=== PATIENT | female | born 1960 | race Caucasian/White ===

== ENCOUNTER 2019-11-26 09:25 | Emergency (ER) | payer MEDICAID ==
--- NOTE | 2019-11-26 09:27 | ERPHSYRPT ---
- History of Present Illness Time Seen by Provider: 11/26/19 09:27 Source: patient Exam Limitations: no limitations Physician History: This is a morbidly obese 59-year-old female who has had stable asthma over several years. She uses albuterol inhaler and nebulizers as needed. In the last 4 weeks the patient's symptoms have worsened. She has been seen in the respiratory clinic on 2 occasions and has called in on a telemedicine [facility] twice during this 4-week. In the last 3 days her symptoms of wheezing and coughing have worsened. She has been placed on steroids which seemed to help her symptoms significantly. However, when the steroid has tapered down to a low level or when she has been out of her prednisone that she has been placed on, her symptoms recur. To her recollection she is never had a fever. She has felt short of breath, although, her oxygen saturations have been normal. Her last chest x-ray was November 08, 2019. This did not show acute findings. Patient was sent here today from the respiratory clinic for further evaluation and management. Patient had the COVID-19 testing done at the respiratory care clinic prior to her arrival here this morning. Patient denies chest pain. Patient denies abdominal pain. Patient denies nausea vomiting diarrhea. No other individuals around her have similar symptoms. Most recent antibiotic that she completed was a Z-Ken Timing/Duration: day(s) (3), worse Activities at Onset: none Severity of Dyspnea-Max: moderate Severity of Dyspnea-Current: moderate Possible Cause: frequent episodes (Recently) Modifying Factors: Improves With: albuterol nebulizer, coughing, other (Steroid therapy seems to help.) Associated Symptoms: cough, wheezing International travel in last 2 weeks: No Allergies/Adverse Reactions: diphenhydramine [From Benadryl] Allergy (Verified 11/26/19 09:48) Home Medications: Ipratropium/Albuterol Sulfate [Iprat-Albut 0.5-3(2.5) mg/3 ml] 3 ml IH UD [History] Hx Tetanus, Diphtheria Vaccination/Date Given: No Hx Influenza Vaccination/Date Given: No Hx Pneumococcal Vaccination/Date Given: No Travel Risk - International Travel Have you traveled outside of the country in past 3 weeks: No Have you or anyone close to you been diagnosed with or: No Do your reside in a community with a known COVID-19 case?: Yes If Yes where:: [facility] - Coronavirus Screening Has patient experienced Coronavirus symptoms: Yes Symptoms experienced: respiratory symptoms (i.e.Cought,shortness of breath) - Review of Systems Constitutional: No Symptoms Eyes: No Symptoms Ears, Nose, & Throat: No Symptoms Respiratory: Cough, Dyspnea, Wheezing Cardiac: No Symptoms Abdominal/Gastrointestinal: No Symptoms Genitourinary Symptoms: No Symptoms Musculoskeletal: No Symptoms Skin: No Symptoms Neurological: No Symptoms Psychological: No Symptoms Endocrine: No Symptoms Hematologic/Lymphatic: No Symptoms Immunological/Allergic: No Symptoms All Other Systems: Reviewed and Negative - Past Medical History Pertinent Past Medical History: Yes Neurological History: No Pertinent History ENT History: No Pertinent History Cardiac History: No Pertinent History Respiratory History: Asthma Endocrine Medical History: No Pertinent History Musculoskeletal History: No Pertinent History GI Medical History: No Pertinent History History: No Pertinent History Psycho-Social History: No Pertinent History Female Reproductive Disorders: No Pertinent History Other Medical History: BACK PAIN YRS AGO - Past Surgical History Past Surgical History: Yes Neuro Surgical History: No Pertinent History Cardiac: No Pertinent History Respiratory: No Pertinent History Gastrointestinal: No Pertinent History Genitourinary: No Pertinent History Musculoskeletal: No Pertinent History Female Surgical History: Hysterectomy, Tubal Ligation - Social History Smoking Status: Never smoker Exposure to second hand smoke: No Drug Use: none Patient Lives Alone: No - Nursing Vital Signs Nursing Vital Signs: Initial Vital Signs Temperature 97.6 F 11/26/19 09:33 Pulse Rate 97 H 11/26/19 09:33 Blood Pressure 189/94 11/26/19 09:33 O2 Sat by Pulse Oximetry 98 11/26/19 09:33 Pain Scale Pain Intensity 0 - Physical Exam General Appearance: moderate distress, alert, anxiety, obese Eye Exam: PERRL/EOMI, eyes nml inspection Ears, Nose, Throat Exam: hearing grossly normal Neck Exam: normal inspection, non-tender, supple, full range of motion Respiratory Exam: airway intact, wheezing, No chest tenderness, No accessory muscle use, No crackles/rales, No rhonchi, No stridor Cardiovascular/Chest Exam: normal heart sounds, regular rate/rhythm Abdominal/Gastrointestinal Exam: soft, normal bowel sounds, No tenderness Rectal Exam: not done Extremity Exam: non-tender, normal range of motion, normal inspection Neurologic Exam: alert, oriented x 3, cooperative, diathermy equipment repairer II-XII nml as tested, normal mood/affect, nml cerebellar function, nml station & gait Skin Exam: normal color, warm, dry Lymphatic Exam: No adenopathy SpO2 Interpretation: normal O2 Delivery: Room Air - Course Nursing assessment & vital signs reviewed: Yes EKG Interpreted by Me: RATE (95), Sinus Rhythm, NORMAL AXIS, NORMAL INTERVALS, NORMAL QRS, Other (No comparison EKG. No acute ischemic changes) Ordered Tests: Active Orders 24 hr Category Date Time Status Mooner STAT Care 11/26/19 09:47 Active EKG-ER Only STAT Care 11/26/19 09:46 Active IV Insertion STAT Care 11/26/19 09:46 Active Isolation, Initiate & Maintain Q4H Care 11/26/19 09:47 Active Pulse Oximetry (ED) STAT Care 11/26/19 09:46 Active CHEST 1 VIEW (PORTABLE) Stat Exams 11/26/19 09:46 Taken BLOOD CULTURE Stat Lab 11/26/19 09:46 Received BMP Stat Lab 11/26/19 11:23 Ordered CBC W DIFF Stat Lab 11/26/19 09:40 Completed D-DIMER QUANTITATIVE Stat Lab 11/26/19 09:40 Completed NT PRO BNP Stat Lab 11/26/19 09:40 Completed PROTIME WITH INR Stat Lab 11/26/19 09:40 Completed TROPONIN Q3H Lab 11/26/19 10:00 Completed TROPONIN Q3H Lab 11/26/19 13:00 Ordered TROPONIN Q3H Lab 11/26/19 16:00 Ordered TROPONIN Q3H Lab 11/26/19 19:00 Ordered TROPONIN Q3H Lab 11/26/19 22:00 Ordered Respiratory Therapy Assessment DAILY RT 11/26/19 10:08 Active Medication Summary Generic Name Dose Route Start Last Admin Trade Name Freq PRN Reason Stop Dose Admin Ceftriaxone Sodium/Dextrose 1 g in 50 mls @ 100 mls/hr 11/26/19 11:22 Rocephin 1 Gm-D5w 50 Ml Bag IV 11/26/19 11:51 STAT STA Discontinued Medications Generic Name Dose Route Start Last Admin Trade Name Freq PRN Reason Stop Dose Admin Hydrocodone Bitart/Acetaminophen 10 ml 11/26/19 09:48 11/26/19 09:53 Hydrocodone-Acetamin 2.5-108/5 Ml Solution PO 11/26/19 09:49 10 ml STAT STA Administration Hydrocodone Bitart/Acetaminophen Confirm 11/26/19 09:51 Hydrocodone-Acetamin 2.5-108/5 Ml Solution Administered 11/26/19 09:52 Dose 10 ml .ROUTE .STK-MED ONE Albuterol/Ipratropium Confirm 11/26/19 09:41 Duoneb 0.5-3 Mg/3 Ml Neb Administered 11/26/19 09:42 Dose 3 ml IH .STK-MED ONE Albuterol/Ipratropium 3 ml 11/26/19 09:46 11/26/19 10:09 Duoneb 0.5-3 Mg/3 Ml Neb IH 11/26/19 09:47 3 ml STAT ONE Administration Levofloxacin 500 mg 11/26/19 11:22 Levofloxacin 500 Mg Tablet PO 11/26/19 11:23 STAT ONE Methylprednisolone Sodium Succinate 125 mg 11/26/19 09:46 11/26/19 09:53 Solu-Medrol 125 Mg IV 11/26/19 09:47 125 mg STAT ONE Administration Methylprednisolone Sodium Succinate Confirm 11/26/19 09:51 Solu-Medrol 125 Mg Administered 11/26/19 09:52 Dose 125 mg .ROUTE .STK-MED ONE Lab/Rad Data: Laboratory Result Diagrams 11/26/19 09:40 Laboratory Results 11/26/19 11/26/19 11/26/19 Range/Units 10:00 09:40 09:40 WBC (4.0-10.5) K/mm3 RBC (4.1-5.4) M/mm3 Hgb (12.0-16.0) gm/dl Hct (35-47) % MCV (78-100) fl MCH (26-32) pg MCHC (32-36) g/dl RDW (11.5-14.0) % Plt Count (150-450) K/mm3 MPV (7.5-11.0) fl Gran % (36.0-66.0) % Eos # (Auto) (0-0.5) Absolute Lymphs (auto) (1.0-4.6) Absolute Monos (auto) (0.0-1.3) Lymphocytes % (24.0-44.0) % Monocytes % (0.0-12.0) % Eosinophils % (0.00-5.0) % Basophils % (0.0-0.4) % Absolute Granulocytes (1.4-6.9) Basophils # (0-0.4) PT 11.9 (9.95-12.35) SECONDS INR 1.05 (0.8-3.0) D-Dimer 458 (215-500) ng/mL Troponin I < 0.012 (0.000-0.034) ng/mL NT-Pro-B Natriuret Pep 85.2 (0-900) pg/mL 11/26/19 Range/Units 09:40 WBC 7.9 (4.0-10.5) K/mm3 RBC 5.29 (4.1-5.4) M/mm3 Hgb 14.8 (12.0-16.0) gm/dl Hct 46.6 (35-47) % MCV 88.1 (78-100) fl MCH 28.0 (26-32) pg MCHC 31.8 L (32-36) g/dl RDW 14.4 H (11.5-14.0) % Plt Count 264 (150-450) K/mm3 MPV 10.3 (7.5-11.0) fl Gran % 63.9 (36.0-66.0) % Eos # (Auto) 0.45 (0-0.5) Absolute Lymphs (auto) 1.82 (1.0-4.6) Absolute Monos (auto) 0.52 (0.0-1.3) Lymphocytes % 23.0 L (24.0-44.0) % Monocytes % 6.6 (0.0-12.0) % Eosinophils % 5.7 H (0.00-5.0) % Basophils % 0.8 (0.0-0.4) % Absolute Granulocytes 5.06 (1.4-6.9) Basophils # 0.06 (0-0.4) PT (9.95-12.35) SECONDS INR (0.8-3.0) D-Dimer (215-500) ng/mL Troponin I (0.000-0.034) ng/mL NT-Pro-B Natriuret Pep (0-900) pg/mL - Progress Progress: improved, re-examined Air Movement: good Progress Note: 11/26/19 11:29 Chest x-ray reveals no acute process. There is no change from prior chest x- ray dated November 08, 2019 Medical decision making: This patient has had coughing and wheezing that is been intermittent over the last 4 weeks. In the last few days her symptoms have worsened. Her symptoms improve on steroids. She is currently off of steroid treatment. She has had antibiotics recently of a Z-Ken. Patient is afebrile, her room air oxygenation is running 97 to 99%. Her chest x-ray does not show any acute findings. Her troponin, d-dimer, and BNP levels are all normal. Patient symptom has improved with DuoNeb nebulizer treatment, intravenous steroids and hydrocodone cough syrup. Her respiratory panel is negative. And her COVID-19 lab test is pending. Patient is to be discharged to home and quarantine herself as she has been doing. We will change her antibiotic therapy, continue steroid dosing, and provide antitussive agent for her. She is to follow-up with her primary care physician for her COVID-19 lab test results. Blood Culture(s) Obtained: Yes Antibiotics given: Yes Counseled pt/family regarding: lab results, diagnosis, need for follow-up, rad results - Departure Departure Disposition: Home Clinical Impression: Bronchitis Condition: Stable Critical Care Time: No Referrals: NOE WHITFIELD MD [Primary Care Provider] - Additional Instructions: Drink plenty of fluids. Take your prescription medication as prescribed. Follow-up with your primary care physician for further management. Return to the emergency department if your symptoms worsen. Prescriptions: Hydrocodone Bit/Acetaminophen [Hydrocodone-Acetaminophen Soln] 10 ml PO Q6H # 120 ml Levofloxacin [Levaquin 500 MG Tablet] 500 mg PO DAILY #7 tablet Methylprednisolone Packet [Medrol Dosepack] 4 mg PO UD #1 packet
[2019-11-26] MEDS ORDERED: DUONEB 0.5-3 MG/3 ml Neb IH ONE ×4 (09:41→11:47)
[2019-11-26] MEDS ORDERED: solu-MEDROL 125 MG IV ONE (09:46)
[2019-11-26 09:48] VITALS: BP 189/94
[2019-11-26] MEDS ORDERED: HYDROCODONE-ACETAMIN 2.5-108/5 ML SOLUTION PO STA (09:48)
[2019-11-26] MEDS ORDERED: HYDROCODONE-ACETAMIN 2.5-108/5 ML SOLUTION ONE (09:51)
[2019-11-26] MEDS ORDERED: solu-MEDROL 125 MG ONE (09:51)
[2019-11-26 10:36] LABS: Absolute Neutrophil Ct (ANC) 5.06 (1.4-6.9); BASOPHIL % 0.8 % (0.0-0.4); Basophil (Absolute #) 0.06 (0-0.4); Eosinophil % 5.7 % (0.00-5.0); Eosinophil (Absolute #) 0.45 (0-0.5); Hematocrit 46.6 % (35-47); Hemoglobin 14.8 gm/dl (12.0-16.0); Lymphocyte (Absolute #) 1.82 (1.0-4.6); Mean Cell Volume 88.1 fl (78-100); Mean Corpuscular Hgb Concent. 31.8 g/dl (32-36); Mean Platelet Volume 10.3 fl (7.5-11.0); Monocyte (Absolute #) 0.52 (0.0-1.3); Monocytes % 6.6 % (0.0-12.0); Neutrophil % 63.9 % (36.0-66.0); Platelet Count 264 K/mm3 (150-450); Red Blood Count 5.29 M/mm3 (4.1-5.4); Red Cell Distribution Width 14.4 % (11.5-14.0); White Blood Count 7.9 K/mm3 (4.0-10.5)
[2019-11-26 10:47] LABS: INR 1.05 (0.8-3.0); PROTIME 11.9 SECONDS (9.95-12.35)
[2019-11-26] MEDS ORDERED: Levofloxacin 500 MG Tablet PO ONE (11:22)
[2019-11-26] MEDS ORDERED: ROCEPHIN 1 Gm-D5w 50 ml Bag** 1 G/50 ML IVPB IV STA (11:22)
[2019-11-26] MEDS ORDERED: ROCEPHIN 1 Gm-D5w 50 ml Bag** 1 G/50 ML IVPB IV ONE (11:26)
[2019-11-26] MEDS ORDERED: Levofloxacin 500 MG Tablet ONE (11:26)
[2019-11-26 11:46] LABS: ANION GAP 13.3 MEQ/L (5-15); BLOOD UREA NITROGEN 13 mg/dL (7-17); CHLORIDE 107 mmol/L (98-107); Calcium 9.5 mg/dL (8.4-10.2); Carbon Dioxide 24 mmol/L (22-30); Creatinine 1 0.73 mg/dL (0.52-1.04); Glucose 108 mg/dL (74-106); Potassium 4.3 mmol/L (3.5-5.1); SODIUM 139 mmol/L (137-145)
[2019-11-26 12:03] VITALS: PULSE 89; O2SAT 98
--- NOTE | 2019-11-26 20:07 | XRAY ---
Indication: Wheezing and cough. Suspect COVID 19. Comparison: November 08, 2019. Portable chest demonstrates minimal lingula fibrosis/scarring. Remaining heart and lungs normal. Bony thorax intact again with mild degenerative changes. No acute findings.
== END 2019-11-26 12:39 | disposition home or self-care (01) ==
LOC: ED 09:25
DX: J40 Bronchitis, not specified as acute or chronic (principal); J45.909 Unspecified asthma, uncomplicated
CPT/HCPCS: 36000; 36415; 71045; 80048; 83880; 84484; 85025; 85379; 85610; 87040; 87631; 93005; 93041; 94640; 94760; 96365; 96374; 99284; U0002; J0696; J2930; U0003; A9270-GY

== ENCOUNTER 2019-12-27 10:50 | Inpatient (IN) | payer OTHER ==
[2019-12-27] MEDS ORDERED: DUONEB 0.5-3 MG/3 ml Neb IH ONE (11:47)
[2019-12-27] MEDS: DUONEB 0.5-3 MG/3 ml Neb IH SCH ×4 (11:50→20:05)
[2019-12-27] MEDS ORDERED: solu-MEDROL 125 MG IV SCH (12:00)
[2019-12-27] MEDS ORDERED: PHARMACY DOSING REQUEST MC ONE (12:22)
--- NOTE | 2019-12-27 12:23 | XRAY ---
Indication: Wheezing. Comparison: November 26, 2019. PA/lateral chest demonstrates stable minimal lingula fibrosis/scarring. Remaining heart and lungs normal. No new/acute findings.
[2019-12-27 12:24] LABS: VBG BASE EXCESS 3.4 (-2.0-2.0); VBG HCO3- 26.8 meq/L (22-28); VBG HEMOGLOBIN 14.4; VBG O2 SATURATION 43.6 (95-100); VBG POTASSIUM 4.1 (3.5-5.1)
[2019-12-27 12:25] LABS: VBG pH 7.48 (7.32-7.42)
[2019-12-27 12:40] LABS: ALBUMIN 4.3 g/dL (3.5-5.0); ALKALINE PHOSPHATASE 113 U/L (38-126); ANION GAP 10.3 MEQ/L (5-15); BLOOD UREA NITROGEN 14 mg/dL (7-17); CHLORIDE 106 mmol/L (98-107); Calcium 9.8 mg/dL (8.4-10.2); Carbon Dioxide 27 mmol/L (22-30); Creatinine 1 0.67 mg/dL (0.52-1.04); Glucose 107 mg/dL (74-106); MAGNESIUM 2.2 mg/dL (1.6-2.3); NT PRO BNP 132 pg/mL (0-900); Potassium 4.1 mmol/L (3.5-5.1); SGOT/AST 23 U/L (14-36); SGPT/ALT 30 U/L (0-35); SODIUM 139 mmol/L (137-145); Total Protein 7.9 g/dL (6.3-8.2)
[2019-12-27] MEDS ORDERED: solu-MEDROL 125 MG IV ONE (12:44)
[2019-12-27] MEDS ORDERED: SODIUM CHLORIDE 0.9% IV ONE (13:00)
[2019-12-27] MEDS ORDERED: AMINOPHYLLINE IV ONE (13:00)
[2019-12-27] MEDS: Singulair 10 MG PO SCH (13:06)
[2019-12-27 15:06] LABS: Hematocrit 44.7 % (35-47); Hemoglobin 14.5 gm/dl (12.0-16.0); Mean Cell Volume 88.9 fl (78-100); Mean Corpuscular Hemoglobin 28.8 pg (26-32); Mean Corpuscular Hgb Concent. 32.4 g/dl (32-36); Mean Platelet Volume 10.3 fl (7.5-11.0); Platelet Count 289 K/mm3 (150-450); Red Blood Count 5.03 M/mm3 (4.1-5.4); White Blood Count 9.8 K/mm3 (4.0-10.5)
[2019-12-27] MEDS: Aminophylline 500 MG/20 ML*** 500 MG in Sodium Chloride 0.9% 500 ML 500 ML IV SCH (15:25)
--- NOTE | 2019-12-27 15:37 | XRAY ---
Indication: Bilateral lower extremity edema. Two-dimensional sonogram and color Doppler imaging of the major venous vessels of the left and right leg was performed. Comparison: None No thrombus seen in the examined deep venous vessels of the left and right leg including greater saphenous vein. Veins demonstrate normal compressibility. Venous waveforms are normal with and without augmentation. Impression: Left and right legs negative for DVT.
[2019-12-27] MEDS ORDERED: NORVASC 5 MG PO ONE (16:57)
[2019-12-27] MEDS: solu-MEDROL 125 MG IV SCH ×2 (18:40→23:39)
[2019-12-27] MEDS: TYLENOL 325 MG PO PRN (21:12)
[2019-12-27] MEDS ORDERED: PROVENTIL 2.5 MG/3 ML NEB IH ONE (23:46)
[2019-12-28] MEDS ORDERED: PROVENTIL 2.5 MG/3 ML NEB IH SCH (01:00)
[2019-12-28] MEDS: DUONEB 0.5-3 MG/3 ml Neb IH SCH ×6 (03:45→23:28)
[2019-12-28] MEDS: solu-MEDROL 125 MG IV SCH ×4 (05:54→23:59)
[2019-12-28] MEDS ORDERED: DUONEB 0.5-3 MG/3 ml Neb IH ONE (06:37)
[2019-12-28] MEDS ORDERED: PROVENTIL 2.5 MG/3 ML NEB IH PRN (06:45)
[2019-12-28] MEDS: TYLENOL 325 MG PO PRN ×2 (08:43→20:20)
[2019-12-28] MEDS: NORVASC 5 MG PO SCH (08:44)
[2019-12-28] MEDS: Singulair 10 MG PO SCH (08:44)
[2019-12-28] MEDS: Zestril 10 MG PO SCH (08:45)
--- NOTE | 2019-12-28 11:48 | HP ---
HISTORY OF PRESENT ILLNESS: This is a 59 year-old patient that was made a direct admission from the clinic. The patient reports a history of asthma for the past 30 years since she has been an adult. She did not have childhood asthma. She reports that she has been seen about five times since October including an emergency room visit. Her only medicine at home was either Albuterol or DuoNeb, plus she has had multiple courses of steroids. She reports she was tested for COVID on 12/06/2019 and that was negative. She has a cough but is productive of some clear sputum sometimes. She does not follow with the transport coordinator. She has history of seasonal allergies. She reports she feels better when she is on steroids but has had a 30 pound weight gain with those. She got a breathing treatment in the clinic yesterday about 1100 hours before her admission and was able to visit with her briefly that day and she did have significant wheezing even a couple of hours after having that breathing treatment and respiratory therapy was giving her some back to back nebulizers on the floor. The patient denies any fever, no nausea or vomiting. No heart problems. REVIEW OF SYSTEMS: No abdominal pain. She has increased lower extremity edema worse on the right side since yesterday. She denies any long car rides. She has had a rash under her left arm which she reports happens when she comes into contact with something that irritates it. MEDICATIONS: Please see the home medication reconciliation list which I have reviewed. ALLERGIES: DIPHENHYDRAMINE. PAST MEDICAL HISTORY: Asthma. Obesity. PAST SURGICAL HISTORY: Foot surgery. Hysterectomy. SOCIAL HISTORY: She lives with her . Denies tobacco or alcohol use. FAMILY HISTORY: Her mother is living and has chronic obstructive pulmonary disease. Her father is and had a myocardial infarction. PHYSICAL EXAMINATION: VITAL SIGNS: Temperature current 97.2F, temperature max 97.5F, heart rate 87, respiratory rate 18, blood pressure 153/66. Oxygen saturation 98% on 2 liters. GENERAL: The patient is sitting up in bed a pleasant talkative lady in no acute distress. CVS: She has a regular rate and rhythm. No murmurs, gallops or rubs. CHEST: She has decreased air exchange at the bases bilaterally, few scattered wheezes. No retractions. No tachypnea. ABDOMEN: Soft, nontender, nondistended with normal bowel sounds. EXTREMITIES: No clubbing, cyanosis or edema. SKIN: Warm, dry and intact. LABORATORY DATA AND TESTS: On admission her CBC was within normal limits. CMP with a glucose of 107. She had chest x-ray that was read as stable minimal lingular fibrosis/scarring, no acute findings. Please see the radiologist dictation for full report. We did a left and right Doppler that was negative for deep venous thrombosis. ASSESSMENT AND PLAN: 1) ASTHMA EXACERBATION: She appears to have moderate to severe asthma at this time. I have consulted transport coordinator, Dr. Rosalba Grimes, to see the patient. Her primary care doctor ordered aminophylline drip for her which she continues to be on and the pharmacist is managing the level of this. We started her IV steroids. She got two back to back breathing treatments and has been on treatments every four hours since then. I also started her on Singulair. The patient would benefit from being followed closely by a transport coordinator as an outpatient as well as long-acting bronchodilator along with an inhaled steroid at discharge. 2) HIGH BLOOD PRESSURE: The patient's blood pressure had been running high during her hospitalization. I started her on amlodipine 10 mg p.o. daily and also started lisinopril 10 mg p.o. daily. The patient reports her blood pressure has also been high as an outpatient and with even a systolic of 180 in the emergency room and they told her that she needed to see her doctor about this.
[2019-12-28] MEDS: ENOXAPARIN SODIUM SQ SCH (13:09)
[2019-12-28] MEDS: Flonase NASAL NS SCH (13:09)
--- NOTE | 2019-12-28 14:04 | CONS ---
CONSULT DATE: 12/28/2019 HISTORY: Miss Tavarez is a 59 year-old woman with long standing history of bronchial asthma who has been admitted with complaints of shortness of breath. The patient reportedly had influenza followed by pneumonia that has made her sick for the last six weeks. She has had history of asthma "all her life". Her asthma was significantly worse in the past and the patient was on multiple medications including bronchodilators by nebulizer, long acting beta-agonist (LABA) combination with inhaled corticosteroids. The patient reportedly has been doing better for the last two years and on her own decided to stop these medications until recently. She has been requiring bronchodilators every four hours before admission. She has cough that has been largely nonproductive. Her effort tolerance has been altered. She has been requiring supplemental oxygen during her stay although with IV steroids and current therapy she does report feeling a lot better. The patient denies prior history of pneumonia. PAST MEDICAL HISTORY: She has strong family history of cardiac problems although she herself does not have any cardiac issues. She also denies history of hypertension, diabetes or common medical problems. PAST SURGICAL HISTORY: No recent surgery. PERSONAL AND SOCIAL HISTORY: She is a nonsmoker, lives with family. MEDICATIONS: Medications are reviewed. ALLERGIES: DIPHENHYDRAMINE. PHYSICAL EXAMINATION: She is an elderly woman who appears comfortable, able to speak without difficulty. Vital signs noted. HEENT: Normocephalic. Oral exam shows small oropharynx. NECK: Supple. CVS: First and second heart sounds are normal, regular, rhythmic. RESPIRATORY: Shows diminished breath sounds, scattered rhonchi are heard. ABDOMEN: Obese. EXTREMITIES: No significant edema is noted. LABORATORY DATA AND TESTS: Serum calcium level is 7.3. White count 9.8, hemoglobin 14.5, hematocrit 45, PLT 289,000. TSH 0.84. CMP noted. D-dimer negative. ABG noted. Chest x-ray reviewed. Venous Doppler's were negative. ASSESSMENT: This is a 59 year old woman with: 1) Long standing history of moderately severe asthma exacerbated for the past six weeks or so requiring hospitalization. The patient has shown significant clinical improvement since admission with IV steroid therapy. 2) Mild hypoxemia improving. RECOMMENDATIONS: I discussed with patient the control of asthma and parameters to monitor for the same. She certainly needs to be restarted back on corticosteroids and will start her back on Advair 500/50 mg 1 inhalation b.i.d. In addition, the patient is currently on steroids which can be switched to oral with taper. I have advised her to follow up with me in outpatient setting in a week or so. The patient needs an IVB level along with CBC however both of these need to be drawn when she is off of IV/oral steroids to avoid masking the levels. I agree with other treatments. I will continue to follow in outpatient setting. Thank you for allowing me to participate in the care of Miss Tavarez.
[2019-12-28] MEDS: Aminophylline 500 MG/20 ML*** 500 MG in Sodium Chloride 0.9% 500 ML 500 ML IV SCH (15:48)
[2019-12-28] MEDS: Advair Hfa 230/21 Mcg COMMON CANISTER IH SCH (19:51)
[2019-12-29] MEDS: DUONEB 0.5-3 MG/3 ml Neb IH SCH ×6 (03:55→23:38)
[2019-12-29] MEDS: solu-MEDROL 125 MG IV SCH ×2 (06:41→10:57)
[2019-12-29] MEDS: Advair Hfa 230/21 Mcg COMMON CANISTER IH SCH ×2 (06:45→20:12)
[2019-12-29] MEDS: TYLENOL 325 MG PO PRN ×3 (06:45→22:14)
[2019-12-29] MEDS: NORVASC 5 MG PO SCH (08:55)
[2019-12-29] MEDS: Zestril 10 MG PO SCH (08:56)
[2019-12-29] MEDS: Singulair 10 MG PO SCH (08:56)
[2019-12-29] MEDS: ENOXAPARIN SODIUM SQ SCH (08:56)
[2019-12-29] MEDS: Flonase NASAL NS SCH (08:57)
[2019-12-29] MEDS: Zofran 4 MG/2 ML VIAL IV PRN ×2 (10:55→19:48)
--- NOTE | 2019-12-29 14:49 | PCM.NOTE ---
Date and Time: 12/29/19 1444 Subjective Assessment: Patient reports that her breathing feels much better. Dr. Rosalba Grimes saw her yesterday and started her on advair. He said we could stop the aminophyline drip today. She still has some cough especially with deep breaths. - Review of Systems Constitutional: No Symptoms Ears, Nose, & Throat: No Symptoms Respiratory: Cough Cardiac: No Symptoms Abdominal/Gastrointestinal: No Symptoms Genitourinary Symptoms: No Symptoms Musculoskeletal: No Symptoms Objective Exam General Appearance: no apparent distress Neurologic Exam: alert, cooperative, normal mood/affect Skin Exam: normal color, warm, dry, No rash Respiratory Exam: other (cough with deep breathing) Cardiovascular Exam: regular rate/rhythm, normal heart sounds, No murmur, No friction rub, No gallop Gastrointestinal/Abdomen Exam: soft, normal bowel sounds, No tenderness, No distention, No mass Extremity Exam: other (no c/c/e) OBJECTIVE DATA Vital Signs: Vital Signs - 24 hr Temp Pulse Resp BP Pulse Ox 12/29/19 14:22 108 H 20 98 12/29/19 12:00 98.1 F 91 H 17 130/60 91 L 12/29/19 10:38 107 H 20 96 12/29/19 08:00 97.8 F 91 H 17 141/63 93 L 12/29/19 07:47 92 L 12/29/19 06:49 86 18 94 L 12/29/19 04:00 98.2 F 101 H 20 132/59 97 12/29/19 03:56 84 18 97 12/28/19 23:45 97.6 F 90 16 121/58 98 12/28/19 23:29 91 H 17 96 12/28/19 19:57 98.3 F 94 H 19 129/59 98 12/28/19 19:53 93 H 16 95 12/28/19 16:00 98.0 F 108 H 16 132/60 99 12/28/19 15:20 96 Pain Assessment - Last Documented Pain Intensity 0 Pain Scale Used 0-10 Pain Scale Intake and Output: Intake & Output 12/27/19 12/28/19 12/29/19 12/30/19 06:59 06:59 06:59 06:59 Intake Total 2461 2310 840 Output Total 900 Balance 1561 2310 840 Weight 133.7 kg 133.7 kg Lab Results: Lab Results-Last 24 Hours 12/29/19 Range/Units 05:47 Theophylline 9.3 L (10-20) ug/mL Radiology Exams: Radiology Procedures Category Date Time Status ECHO W/2D AND DOPPLER [US] Routine Exams 12/27/19 15:19 Taken ULTRASOUND BILATERAL LOWER EXTREMITY [VENOUS BILATERAL Exams 12/27/19 15:20 Completed EXTREMITY] [US] Routine Multi-Disciplinary Progress Notes: Multi-Disciplinary Progress Notes 12/29/19 11:45 Case Management Note by Yamini Leon S/W PATIENT- NO CHANGE IN DC PLANS. SHE STATES SHE NEEDS A B/P CUFF BUT IS UNABLE TO AFFORD ONE. NOTIFIED INSURANCE DOES NOT COVER B/P MONITOR. SHE MENTIONED SHE COULD MAYBE BORROW HER SISTERS. SHE WAS ALSO INSTRUCTED SHE COULD HAVE IT CHECKED AT THE HEALTH DEPARTMENT, THAT [facility] HAS A CUFF, OR SHE COULD POSSIBLY ARRANGE FOR IT TO BE CHECKED IN THE PHYSICIANS OFFICE. SHE VERIFIED UNDERSTANDING Initialized on 12/29/19 11:45 - END OF NOTE Assessment/Plan (1) Acute asthma exacerbation Current Visit: Yes Status: Acute Assessment & Plan: Stop aminophylline drip today and change from IV steroids to oral prednisone. Continue advair. May be able to discharge tomorrow if she does well overnight. Continue breathing treatments. To follow up with Dr. Grimes as outpatient. (2) Hypertension Current Visit: Yes Status: Acute Assessment & Plan: Better controlled on medication. Will plan to continue this at discharge. Code(s): I10 - ESSENTIAL (PRIMARY) HYPERTENSION (3) Nocturnal hypoxia Current Visit: Yes Status: Acute Assessment & Plan: Patient reports she was told her O2 sat is lower at night and needs overnight pulse ox. This was ordered but RT states no machines available at this time. Code(s): G47.34 - IDIO SLEEP RELATED NONOBSTRUCTIVE ALVEOLAR HYPOVENTILATION (4) Gasping for breath Current Visit: Yes Status: Acute Assessment & Plan: She reports waking up at night feeling like she is gasping for air at times. Will order outpatient sleep study. Code(s): R06.89 - OTHER ABNORMALITIES OF BREATHING (5) DVT prophylaxis Current Visit: Yes Status: Acute Assessment & Plan: Continue lovenox. Code(s): Z29.9 - ENCOUNTER FOR PROPHYLACTIC MEASURES, UNSPECIFIED
[2019-12-29] MEDS: DELTASONE 20 MG PO SCH (22:14)
[2019-12-30] MEDS: DUONEB 0.5-3 MG/3 ml Neb IH SCH ×7 (03:44→22:40)
[2019-12-30 05:59] LABS: Hematocrit 39.1 % (35-47); Hemoglobin 12.4 gm/dl (12.0-16.0); Mean Cell Volume 91.1 fl (78-100); Mean Corpuscular Hemoglobin 28.9 pg (26-32); Mean Corpuscular Hgb Concent. 31.7 g/dl (32-36); Mean Platelet Volume 10.1 fl (7.5-11.0); Platelet Count 304 K/mm3 (150-450); Red Blood Count 4.29 M/mm3 (4.1-5.4); Red Cell Distribution Width 16.1 % (11.5-14.0); White Blood Count 22.4 K/mm3 (4.0-10.5)
[2019-12-30 06:14] LABS: ALBUMIN 3.3 g/dL (3.5-5.0); ALKALINE PHOSPHATASE 75 U/L (38-126); BLOOD UREA NITROGEN 25 mg/dL (7-17); CHLORIDE 107 mmol/L (98-107); Calcium 9.5 mg/dL (8.4-10.2); Carbon Dioxide 24 mmol/L (22-30); Creatinine 1 0.69 mg/dL (0.52-1.04); Glucose 172 mg/dL (74-106); Potassium 4.5 mmol/L (3.5-5.1); SGOT/AST 17 U/L (14-36); SGPT/ALT 23 U/L (0-35); SODIUM 139 mmol/L (137-145); Total Protein 6.2 g/dL (6.3-8.2)
[2019-12-30 06:25] LABS: Risk Ratio 3.4
[2019-12-30] MEDS: Advair Hfa 230/21 Mcg COMMON CANISTER IH SCH ×2 (07:11→19:05)
[2019-12-30 07:36] LABS: BAND 8 % (0.0-2.0); Lymphocytes 4 % (24-44); Monocyte 3 % (0.0-12.0); Neutrophils 85 % (36.0-66.0); Total Cells Counted 100
[2019-12-30 07:37] LABS: ANISOCYTOSIS 1+; Platelet Estimate NORMAL (NORMAL)
[2019-12-30 07:38] LABS: Polychromasia RARE
[2019-12-30] MEDS: TYLENOL 325 MG PO PRN (09:45)
[2019-12-30] MEDS: Singulair 10 MG PO SCH (09:45)
[2019-12-30] MEDS: DELTASONE 20 MG PO SCH ×2 (09:45→21:38)
[2019-12-30] MEDS: Zestril 10 MG PO SCH (09:45)
[2019-12-30] MEDS: NORVASC 5 MG PO SCH (09:45)
[2019-12-30] MEDS: Flonase NASAL NS SCH (09:46)
[2019-12-30] MEDS: ENOXAPARIN SODIUM SQ SCH (09:47)
--- NOTE | 2019-12-30 10:19 | PCM.NOTE ---
Date and Time: 12/30/19 1012 Subjective Assessment: Patient had vomiting yesterday 4 x after a nose bleed. She reports she got short of breath with the vomiting. When she vomited her aminophyline drip had been turned off and she had not had her oral prednisone yet. She feels better this AM but also reports chills last night and feeling hot. She states this has been happening at home too. She has had loose stools but denies diarrhea. - Review of Systems Constitutional: Chills Respiratory: Cough, Short Of Breath Cardiac: No Symptoms Abdominal/Gastrointestinal: No Diarrhea, No Constipation Genitourinary Symptoms: No Symptoms Objective Exam General Appearance: no apparent distress, alert Neurologic Exam: alert, cooperative, normal mood/affect Skin Exam: normal color, warm, dry Respiratory Exam: other (few scattered wheezes, equal breath sounds, no crackles ) Cardiovascular Exam: regular rate/rhythm, normal heart sounds, No murmur, No friction rub, No gallop Gastrointestinal/Abdomen Exam: soft, normal bowel sounds, No tenderness, No distention, No mass Extremity Exam: other (no c/c/e) OBJECTIVE DATA Vital Signs: Vital Signs - 24 hr Temp Pulse Resp BP Pulse Ox 12/30/19 08:00 97.8 F 100 H 15 136/61 97 12/30/19 07:08 89 18 97 12/30/19 04:00 98.2 F 92 H 16 141/65 96 12/30/19 03:44 92 H 16 96 12/30/19 00:00 97.6 F 91 H 15 143/69 97 12/29/19 23:38 97 H 16 96 12/29/19 20:14 105 H 15 97 12/29/19 20:00 98.2 F 115 H 23 121/58 96 12/29/19 16:00 97.8 F 120 H 22 138/60 91 L 12/29/19 14:22 108 H 20 98 12/29/19 12:00 98.1 F 91 H 17 130/60 91 L 12/29/19 10:38 107 H 20 96 Oxygen-Last 24 hours Oxygen Flowrate (L/min)-RT 2 Pain Assessment - Last Documented Pain Intensity 5 Pain Scale Used 0-10 Pain Scale Intake and Output: Intake & Output 12/28/19 12/29/19 12/30/19 12/31/19:59 06:59 06:59 06:59 Intake Total 8991 2310 2049 Output Total 900 1000 Balance 1561 2310 1049 Weight 133.7 kg 133.7 kg Lab Results: Lab Results-Last 24 Hours 12/30/19 12/30/19 12/30/19 Range/Units 04:45 04:45 05:15 WBC 22.4 H (4.0-10.5) K/mm3 RBC 4.29 (4.1-5.4) M/mm3 Hgb 12.4 (12.0-16.0) gm/dl Hct 39.1 (35-47) % MCV 91.1 (78-100) fl MCH 28.9 (26-32) pg MCHC 31.7 L (32-36) g/dl RDW 16.1 H (11.5-14.0) % Plt Count 304 (150-450) K/mm3 MPV 10.1 (7.5-11.0) fl Absolute Granulocytes 20.80 H (1.4-6.9) Segmented Neutrophils 85 H (36.0-66.0) % Band Neutrophils 8 H (0.0-2.0) % Lymphocytes (Manual) 4 L (24-44) % Monocytes (Manual) 3 (0.0-12.0) % Platelet Estimate NORMAL (NORMAL) RBC Morphology ABNORMAL Polychromasia RARE Anisocytosis 1+ Sodium 139 (137-145) mmol/L Potassium 4.5 (3.5-5.1) mmol/L Chloride 107 (98-107) mmol/L Carbon Dioxide 24 (22-30) mmol/L Anion Gap 13.0 (5-15) MEQ/L BUN 25 H (7-17) mg/dL Creatinine 0.69 (0.52-1.04) mg/dL Estimated GFR > 60.0 ML/MIN Glucose 172 H (74-106) mg/dL Calcium 9.5 (8.4-10.2) mg/dL Total Bilirubin 0.30 (0.2-1.3) mg/dL AST 17 (14-36) U/L ALT 23 (0-35) U/L Alkaline Phosphatase 75 (38-126) U/L Serum Total Protein 6.2 L (6.3-8.2) g/dL Albumin 3.3 L (3.5-5.0) g/dL Triglycerides 92 (30-150) mg/dL Cholesterol 244 H (50-200) mg/dL LDL Cholesterol 145 H (30-100) mg/dL HDL Cholesterol 71 H (40-60) mg/dL Heart Disease Risk Ratio 3.4 Radiology Exams: Radiology Procedures Category Date Time Status CHEST 2 VIEWS (PA AND LAT) Routine Exams 12/30/19 Ordered Multi-Disciplinary Progress Notes: Multi-Disciplinary Progress Notes 12/29/19 20:06 Respiratory Note by Govind Lawler WENT TO ADMINISTER NEB AND MDI TX AND PT WAS VOMITING INTO TRASH CAN. I NOTIFIED NURSING AND ASSISTED W/ PT. I LET PT AND NURSE KNOW THAT ID COME BACK AFTER SHE WAS CLEANED UP TO SEE IF SHE WAS READY AT THAT TIME FOR HER TX. Initialized on 12/29/19 20:06 - END OF NOTE 12/29/19 11:45 Case Management Note by Yamini Leon S/W PATIENT- NO CHANGE IN DC PLANS. SHE STATES SHE NEEDS A B/P CUFF BUT IS UNABLE TO AFFORD ONE. NOTIFIED INSURANCE DOES NOT COVER B/P MONITOR. SHE MENTIONED SHE COULD MAYBE BORROW HER SISTERS. SHE WAS ALSO INSTRUCTED SHE COULD HAVE IT CHECKED AT THE HEALTH DEPARTMENT, THAT [facility] HAS A CUFF, OR SHE COULD POSSIBLY ARRANGE FOR IT TO BE CHECKED IN THE PHYSICIANS OFFICE. SHE VERIFIED UNDERSTANDING Initialized on 12/29/19 11:45 - END OF NOTE Assessment/Plan (1) Acute asthma exacerbation Current Visit: Yes Status: Acute Assessment & Plan: On oral prednisone; albuterol; patient reports she was on oxygen again last night. Overnight pulse oximetry test did not work correctly per RT Ojeda. (2) Hypertension Current Visit: Yes Status: Acute Assessment & Plan: Better controlled. Continue current medication. Code(s): I10 - ESSENTIAL (PRIMARY) HYPERTENSION (3) Nocturnal hypoxia Current Visit: Yes Status: Acute Assessment & Plan: May be able to try overnight pulse ox again tonight. Code(s): G47.34 - IDIO SLEEP RELATED NONOBSTRUCTIVE ALVEOLAR HYPOVENTILATION (4) Gasping for breath Current Visit: Yes Status: Resolved Code(s): R06.89 - OTHER ABNORMALITIES OF BREATHING (5) DVT prophylaxis Current Visit: Yes Status: Acute Code(s): Z29.9 - ENCOUNTER FOR PROPHYLACTIC MEASURES, UNSPECIFIED (6) Leukocytosis Current Visit: Yes Status: Acute Assessment & Plan: May be due to vomiting or steroids Will recheck in AM. Also checking chest X- ray. Code(s): D72.829 - ELEVATED WHITE BLOOD CELL COUNT, UNSPECIFIED
[2019-12-30] MEDS: Zofran 4 MG/2 ML VIAL IV PRN (11:20)
--- NOTE | 2019-12-30 12:00 | XRAY ---
Indication: Leukocytosis. Asthma. Comparison: December 27, 2019. PA/lateral chest unchanged again demonstrating minimal lingula fibrosis/scarring. Remaining heart and lungs unremarkable. No new/acute findings.
[2019-12-30] MEDS ORDERED: ATARAX 25 MG PO PRN (22:58)
[2019-12-31] MEDS: DUONEB 0.5-3 MG/3 ml Neb IH SCH ×3 (02:48→10:43)
[2019-12-31] MEDS ORDERED: Sodium Chloride 0.9% 10 ML FLUSH Syringe IV SCH (06:00)
[2019-12-31 06:41] LABS: Hemoglobin 12.2 gm/dl (12.0-16.0); Mean Cell Volume 91.5 fl (78-100); Mean Corpuscular Hemoglobin 28.6 pg (26-32); Mean Corpuscular Hgb Concent. 31.3 g/dl (32-36); Mean Platelet Volume 9.9 fl (7.5-11.0); Platelet Count 255 K/mm3 (150-450); Red Blood Count 4.26 M/mm3 (4.1-5.4); White Blood Count 14.4 K/mm3 (4.0-10.5)
[2019-12-31] MEDS: Advair Hfa 230/21 Mcg COMMON CANISTER IH SCH (06:42)
[2019-12-31 06:56] VITALS: BP 162/76
[2019-12-31] MEDS: Zofran 4 MG/2 ML VIAL IV PRN (08:48)
[2019-12-31] MEDS: Zestril 10 MG PO SCH (10:26)
[2019-12-31] MEDS: DELTASONE 20 MG PO SCH (10:26)
[2019-12-31] MEDS: Singulair 10 MG PO SCH (10:27)
[2019-12-31] MEDS: Flonase NASAL NS SCH (10:27)
[2019-12-31] MEDS: NORVASC 5 MG PO SCH (10:27)
[2019-12-31] MEDS: ENOXAPARIN SODIUM SQ SCH (10:30)
--- NOTE | 2019-12-31 10:43 | PCM.DCORD ---
- Discharge Discharge Date: 12/31/19 Disposition: Home, Self-Care Condition: Good Prescriptions: New Fluticasone/Salmeterol 230/21 [Advair Hfa 230/21 Mcg COMMON CANISTER*] 2 puff IH BIDRT #1 aer.w.adap Hydroxyzine HCl 25 mg [Atarax 25 mg] 25 mg PO Q4H PRN PRN #20 tablet PRN Reason: Itching Prednisone 20 mg [Deltasone 20 mg] 20 mg PO UD #9 tablet Amlodipine Besylate 5 mg [Norvasc 5 mg] 10 mg PO QAM #30 tablet Montelukast Sodium 10 mg [Singulair 10 MG] 10 mg PO DAILY #30 tablet Lisinopril 10 mg [Zestril 10 MG] 10 mg PO DAILY #30 tablet Ondansetron ODT 4 MG [Zofran Odt 4 mg] 4 mg PO Q6H PRN PRN #10 tab.rapdis PRN Reason: Nausea Continue Ipratropium/Albuterol Sulfate [Iprat-Albut 0.5-3(2.5) mg/3 ml] 3 ml IH QID PRN PRN Reason: Shortness Of Breath/Wheezing Albuterol Sulfate [Albuterol Sulfate Hfa] 2 puff IH Q4H PRN PRN Reason: Shortness Of Breath/Wheezing Fluticasone Propionate [Flonase NASAL] 2 spray NS DAILY Additional Instructions: Oxygen 2L by nasal cannula at night. Follow up with at [facility] on 01/04/20 @ 2:00pm. Follow up with: NOE WHITFIELD MD [Primary Care Provider] - 1 Week ANNABEL PACE [ACTIVE STAFF] - 01/04/20 2:00 pm
[2019-12-31 10:46] LABS: BAND 4 % (0.0-2.0); Lymphocytes 15 % (24-44); Monocyte 4 % (0.0-12.0); Neutrophils 77 % (36.0-66.0); Platelet Estimate NORMAL (NORMAL); Total Cells Counted 100
[2019-12-31 10:56] VITALS: PULSE 84; O2SAT 98
--- NOTE | 2020-01-03 16:50 | DS ---
DISCHARGE DIAGNOSIS: 1. ACUTE ASTHMA EXACERBATION. 2. HYPERTENSION. 3. NOCTURNAL HYPOXIA. 4. LEUKOCYTOSIS. 5. ITCHING. DISCHARGE PHYSICAL EXAM: VITALS: Temperature current 97.9, temperature maximum 97.9, heart rate 92, respiratory rate 17, O2 saturation 93% on room air, BP 162/76. GENERAL: The patient is a pleasant, talkative lady sitting up in no acute distress. CVS: She has a regular rate and rhythm. No murmurs, gallops, or rubs are appreciated. CHEST: Clear to auscultation bilaterally. No crackles or wheezes were appreciated. Equal breath sounds. No tachypnea. No retractions. ABDOMEN: Soft, nontender, nondistended with normal bowel sounds. EXTREMITIES: No clubbing, cyanosis, or edema. SKIN: Warm, dry, and intact and without rashes. HOSPITAL COURSE: 1. Acute asthma exacerbation. She was made a direct admission from the clinic and was given albuterol treatments and was given an aminophylline drip which was continued for approximately 48 hours. She was first started on IV steroids which were weaned to oral steroids. Dr. Grimes, blow mold technician, saw her and started Advair. She also was started on Singulair by her primary care doctor as an outpatient. I plan to discharge her with an inhaler, nebulizer, Advair, Singulair, and she is going to follow-up closely with both her primary care provider and Dr. Grimes. 2. Hypertension. She was started on both Lisinopril and amlodipine during her hospitalization. Her BP's were better controlled, but she still may need adjustment as an outpatient. She plans to check her BP at home once a day. 3. Nocturnal hypoxia due to asthma. She had an overnight pulse oximetry test that showed that she needs O2. I have asked Discharge Planning and RT to set up an outpatient sleep study. They are checking to see if this has been scheduled yet as I believe she may have sleep apnea as well. 4. Leukocytosis. Her WBC went up to 22,400. It was repeated today at 14,400 which I think is most likely due to the steroids. She had also been vomiting the day that it was 22,400. She hasn't had any fever and is feeling well today and would like to go home. 5. Itching. She reports some itching on and off. She is unsure if she has seasonal allergies. Hydroxyzine helped last night. Will plan to discharge her home with a script for some hydroxyzine as needed, but I did caution her she should not drive if she takes this. DISCHARGE MEDICATIONS: Please see the discharge order. She is also to wear 2 liters of O2 at night and follow-up with a blow mold technician as well as primary care doctor. DISPOSITION: The patient was discharged home in fair condition.
--- NOTE | 2020-01-10 15:36 | ECHO ---
Transthoracic echocardiographic examination and color Doppler was done on 12/27/2019. INDICATION: Hypertension. IMPRESSION: 1) NO DEFINITE REGIONAL WALL MOTION ABNORMALITY. ESTIMATED GLOBAL LEFT VENTRICULAR EJECTION FRACTION OF AROUND 60%. 2) MILD LEFT VENTRICULAR HYPERTROPHY. The left ventricle was partially visualized but demonstrated no obvious wall motion abnormality. The estimated global left ventricular ejection fraction 60%. There is mild left ventricular hypertrophy. The mitral valve is seen and this opens adequately. There is trace mitral regurgitation. The aortic valve opens adequately. The peak gradient across the aortic valve is about 13 mmHg. The right side chambers are normal. There is trace tricuspid regurgitation.
== END 2019-12-31 11:50 | disposition home or self-care (01) | DRG 203 ==
LOC: MED SURG 11:08
PROVIDERS: ADMIT Internal Medicine; ATTEND Internal Medicine
DX: J45.901 Unspecified asthma with (acute) exacerbation (principal); I10 Essential (primary) hypertension; R06.89 Other abnormalities of breathing; G47.34 Idiopathic sleep related nonobstructive alveolar hypoventilation; R11.10 Vomiting, unspecified; R04.0 Epistaxis; D72.829 Elevated white blood cell count, unspecified; Z79.899 Other long term (current) drug therapy
CPT/HCPCS: 36415; 71046; 80053; 80061; 80198; 82805; 83721; 83735; 83880; 84443; 85025; 85027; 85379; 93306; 93970; 94150; 94640; 94760; 94762; J0280; J1650; J2405; J2930; J7609; A9270-GY

== ENCOUNTER 2020-10-29 08:55 | Day surgery (SDC) | payer OTHER ==
--- NOTE | 2020-10-29 08:24 | HP ---
DATE OF SURGERY: 10/29/2020 HISTORY OF PRESENT ILLNESS: The patient is a 60 year-old with nausea, diarrhea that has been going on for a couple of months, worse recently and some right upper quadrant epigastric pain. She had a ultrasound show gallstones and also had mildly decreased ejection fraction 23%. PAST MEDICAL HISTORY: Hypertension, asthma. PAST SURGICAL HISTORY: Hysterectomy in the past. MEDICATIONS: Albuterol, Alprazolam, Amlodipine, Albuterol, gabapentin, Montelukast, memantine, fluticasone spray, hydroxyzine, lisinopril, Trelegy Ellipta, Reglan. ALLERGIES: BENADRYL. FAMILY HISTORY: Heart disease, diabetes, hypertension. SOCIAL HISTORY: No smoking or alcohol abuse. LAB DATA AND TESTS: She had an ultrasound with cholelithiasis, ejection fraction 23%. REVIEW OF SYSTEMS: Fourteen systems reviewed. No chest pain or palpitations. Other systems negative or noncontributory as above and per preadmission questionnaire. PHYSICAL EXAMINATION: GENERAL: No acute distress. HEENT: Sclerae nonicteric. NECK: No JVD. CHEST: Clear to auscultation. CVS: Regular rate and rhythm. ABDOMEN: Soft. No peritoneal signs. Mild tenderness epigastrium/right upper quadrant. EXTREMITIES: No significant edema. NEURO: Alert, oriented, moving extremities symmetrically. PSYCH: Appropriate mood and affect. IMPRESSION: Acute exacerbation chronic cholecystitis, symptomatic cholelithiasis. I feel the patient will benefit from cholecystectomy. Risks and benefits explained in detail including but not limited to bleeding or infection, risk of trocar injury or hernia, risk of bowel, bladder or blood vessel injury, risk of bile leak, bile duct injury, retained stone or sludge possibly requiring further procedure either open or ERCP, general risk of anesthesia, deep venous thrombosis, pulmonary embolism, pneumonia, perioperative risk of aches, pains, bloating, constipation and/or loose stools possibly chronic in nature, possibility of open procedure, possibility the procedure may not improve symptoms. She understands and agrees to the planned procedure, will proceed with laparoscopic cholecystectomy with possible open as an outpatient.
[~2020-10-29 08:55] MED LIST: Lactated Ringers 1,000 ML IV ONE; Sensorcaine 0.25% 10 ML ONE
[2020-10-29] MEDS ORDERED: MEFOXIN 2 GM PREMIX** 2 GM/50 ML ML IV ONE (10:07)
[2020-10-29] MEDS ORDERED: Lactated Ringers 1,000 ML IV ONE (10:08)
[2020-10-29 10:30] LABS: Hematocrit 42.6 % (35-47); Hemoglobin 13.4 gm/dl (12.0-16.0); Mean Cell Volume 87.1 fl (78-100); Mean Corpuscular Hemoglobin 27.4 pg (26-32); Mean Corpuscular Hgb Concent. 31.5 g/dl (32-36); Mean Platelet Volume 9.5 fl (7.5-11.0); Platelet Count 254 K/mm3 (150-450); Red Blood Count 4.89 M/mm3 (4.1-5.4); Red Cell Distribution Width 14.2 % (11.5-14.0); White Blood Count 7.4 K/mm3 (4.0-10.5)
[2020-10-29] MEDS ORDERED: Lactated Ringers 1,000 ML IV SCH (10:30)
[2020-10-29] MEDS ORDERED: DIPRIVAN 200 MG/20 ML IV ONE ×2 (10:36→11:46)
[2020-10-29 10:39] LABS: ANION GAP 11.6 MEQ/L (5-15); BLOOD UREA NITROGEN 13 mg/dL (7-17); CHLORIDE 102 mmol/L (98-107); Calcium 9.3 mg/dL (8.4-10.2); Carbon Dioxide 28 mmol/L (22-30); Creatinine 1 0.91 mg/dL (0.52-1.04); EST GLOMERULAR FILTRATION RATE > 60.0 ML/MIN; Glucose 104 mg/dL (74-106); Potassium 4.7 mmol/L (3.5-5.1); SODIUM 137 mmol/L (137-145)
[2020-10-29] MEDS ORDERED: Zofran 4 MG/2 ML VIAL ONE ×2 (10:41→10:48)
[2020-10-29] MEDS ORDERED: TORAdol 30 mg Injection ONE (10:48)
[2020-10-29] MEDS ORDERED: Zemuron 100 MG/10 ML ONE (10:48)
[2020-10-29] MEDS ORDERED: Xylocaine-Mpf 2% 5 Ml Vial ONE (10:48)
[2020-10-29] MEDS ORDERED: SUBLIMAZE 100 MCG/2 ML ONE ×2 (10:48→11:14)
[2020-10-29] MEDS ORDERED: Versed 2 MG/2 ML Injection ONE (10:48)
[2020-10-29] MEDS ORDERED: BRIDION 200MG/2ML IV ONE (10:48)
[2020-10-29] MEDS ORDERED: Decadron 4 MG INJ ONE (10:48)
[2020-10-29] MEDS ORDERED: MEFOXIN 2 GM PREMIX** 2 GM/50 ML ML IV SCH (11:00)
[2020-10-29] MEDS ORDERED: Ephedrine Sulfate 50 MG/ML ONE (11:23)
[2020-10-29] MEDS ORDERED: MORPHINE SULFATE 10 MG/ML ONE (12:04)
[2020-10-29] MEDS ORDERED: Compazine 10 MG/2 ML ONE (12:04)
[2020-10-29] MEDS ORDERED: Hydromorphone 1 mg/ml Injection ONE (12:05)
[2020-10-29 12:54] VITALS: O2SAT 93
[2020-10-29 13:49] VITALS: BP 124/74; PULSE 84
--- NOTE | 2020-10-29 15:08 | OP ---
SURGERY DATE/TIME: 10/29/2020 1059 PREOPERATIVE DIAGNOSIS: Acute exacerbation of symptomatic cholelithiasis, chronic cholecystitis. POSTOPERATIVE DIAGNOSIS: Acute exacerbation of symptomatic cholelithiasis, severe chronic cholecystitis. PROCEDURE: Laparoscopic cholecystectomy. SURGEON: Dr. Brian Garcia. ANESTHESIA: General. ESTIMATED BLOOD LOSS: Minimal. INDICATIONS: As noted above. Risks and benefits explained in detail but not limited to and consent obtained. DESCRIPTION OF PROCEDURE AND FINDINGS: The patient was taken to the operating room. General anesthesia induced. Abdomen prepped and draped in the usual sterile fashion. After official time out and no disagreement with planned procedure, a transverse incision made at the supraumbilical area. Fascia grasped and pulled upward. Veress needle inserted and tested with saline. Pneumoperitoneum accomplished insufflating opening pressure of 0-15. A 5 mm bladeless port and camera inserted without difficulty followed by two - 5 mm right upper quadrant ports and 11 mm epigastric port. The gallbladder grasped. It had some fibrofatty chronic inflammatory reaction. Dissecting posterior, lateral to anterior fashion slowly and carefully cystic duct and infundibular area slowly and carefully well skeletonized until the critical view obtained both anteriorly and posteriorly. Once this was accomplished cystic duct and cystic artery clipped x3 and divided in usual fashion. Gallbladder slowly and carefully dissected free from its dense attachment to liver bed staying directly on the gallbladder wall clipping additional oozing side branches off the cystic artery as necessary. Just prior to releasing from final attachments to the anterior edge of the liver, the liver bed re-inspected. Clips noted in place cystic duct and cystic artery stumps. No signs of any active bleeding or bile leakage. It was felt there was no benefit in drain placement. Gallbladder released from final attachments to anterior edge of the liver, placed in the provided sac by the hospital, pulled up into epigastrium. It was necessary to spread the fascia just slightly allowing the gallbladder to be pulled up. There was a small amount of bile oozing from the sac. There were no visible stone spillage. The gallbladder was opened outside the skin and decompressed of some bile and clamp pressed part of the moderate sized stone. Once the gallbladder was pulled free and passed off the bag was then removed. There was no palpable visible stones in the lumen at this point. Fascia defect closed with puncture closure device. Copious amount of irrigation intra-abdominal irrigating until clear. A scant amount of bile was spilled from the sac. There are no signs of any visible stone spillage. Clips are noted in place cystic duct and cystic artery stumps. No signs of any active bleeding or bile leakage from the liver bed itself. Copious amount of irrigation irrigated clear. Again, fascial defect 05/06 site closed with puncture closure device with #1 Vicryl. Pneumoperitoneum decompressed. The wound irrigated out. Skin incision closed with 4-0 Vicryl. Steri-Strips and sterile dressing applied. 0.25% Marcaine local injected along the skin incision fascial defect. The patient tolerated the procedure well. There were no immediate complications. Findings discussed with the family out in the waiting area.
== END 2020-10-29 13:50 | disposition home or self-care (01) ==
LOC: SDC 08:55
PROVIDERS: ATTEND Surgery
DX: K80.10 Calculus of gallbladder with chronic cholecystitis without obstruction (principal); R11.0 Nausea; R19.7 Diarrhea, unspecified; Z79.899 Other long term (current) drug therapy; I10 Essential (primary) hypertension; J45.909 Unspecified asthma, uncomplicated
CPT/HCPCS: 36415; 80048; 85027; 93005; J0694; J1100; J1170; J1885; J2250; J2270; J2405; J2704; J3010

== ENCOUNTER 2021-10-09 11:10 | Observation (INO) | payer OTHER ==
[2021-10-09] MEDS ORDERED: DUONEB 0.5-3 MG/3 ml Neb IH ONE (11:28)
[2021-10-09] MEDS: DUONEB 0.5-3 MG/3 ml Neb IH SCH ×3 (11:30→18:43)
[2021-10-09 12:03] LABS: INFLUENZA A NEGATIVE (NEGATIVE); INFLUENZA B NEGATIVE (NEGATIVE); RESPIRATORY SYNCTIAL VIRUS NEGATIVE (Negative); SARS-CoV-2 Xpert Express NEGATIVE (NEGATIVE)
[2021-10-09 12:36] LABS: Hematocrit 37.2 % (35-47); Mean Cell Volume 87.1 fl (78-100); Mean Corpuscular Hemoglobin 28.1 pg (26-32); Mean Corpuscular Hgb Concent. 32.3 g/dl (32-36); Mean Platelet Volume 9.2 fl (7.5-11.0); Platelet Count 205 K/mm3 (150-450); Red Blood Count 4.27 M/mm3 (4.1-5.4); Red Cell Distribution Width 13.8 % (11.5-14.0); White Blood Count 5.6 K/mm3 (4.0-10.5)
--- NOTE | 2021-10-09 12:39 | XRAY ---
Indication: Asthma exacerbation. Comparison: December 30, 2019. Portable chest demonstrates new mild left infrahilar infiltrate/atelectasis. Remaining heart and right lung unremarkable. Bony thorax intact.
[2021-10-09] MEDS: ROCEPHIN 1 Gm-D5w 50 ml Bag** 1 G/50 ML IVPB IV SCH (12:46)
[2021-10-09] MEDS: Lactated Ringers 1,000 ML IV SCH (12:46)
[2021-10-09 12:55] LABS: ALBUMIN 3.6 g/dL (3.5-5.0); ALKALINE PHOSPHATASE 125 U/L (38-126); ANION GAP 8.4 MEQ/L (5-15); BLOOD UREA NITROGEN 9 mg/dL (7-17); CHLORIDE 104 mmol/L (98-107); Calcium 8.7 mg/dL (8.4-10.2); Carbon Dioxide 28 mmol/L (22-30); Creatinine 1 0.74 mg/dL (0.52-1.04); EST GLOMERULAR FILTRATION RATE > 60.0 ML/MIN; Glucose 92 mg/dL (74-106); Potassium 3.3 mmol/L (3.5-5.1); SGOT/AST 25 U/L (14-36); SGPT/ALT 26 U/L (0-35); SODIUM 138 mmol/L (137-145); Total Protein 6.7 g/dL (6.3-8.2)
[2021-10-09] MEDS ORDERED: solu-MEDROL 125 MG, Sterile H2O 10 ml 2 ML IV SCH ×2 (13:00)
[2021-10-09 13:27] LABS: Appearance CLEAR (CLEAR); Bilirubin NEGATIVE (NEGATIVE); Blood SMALL Ery/ul (0-5); Glucose NEGATIVE (NEGATIVE); Ketones NEGATIVE (NEGATIVE); Leukocyte Esterase NEGATIVE (NEGATIVE); Mucus SLIGHT /HPF (NEGATIVE); Nitrite NEGATIVE (NEGATIVE); Protein,Urine Dip NEGATIVE (Negative); RBC 0-2 /HPF (0-2); Specific Gravity 1.012 (1.005-1.025); Urobilinogen NEGATIVE mg/dL (0-1); WBC 0-2 /HPF (0-5)
[2021-10-09 13:42] LABS: ATYPICAL LYMPHS 3 %; Eosinophil 3 % (0.00-3.0); Lymphocytes 36 % (24-44); Monocyte 10 % (0.0-12.0); Neutrophils 48 % (36.0-66.0); Platelet Estimate NORMAL (NORMAL); Total Cells Counted 100
[2021-10-09] MEDS: Zithromax 500 MG/ 250 ML NaCl Premix 500 MG/250 ML IVPB IV SCH (13:56)
[2021-10-09] MEDS ORDERED: DUONEB 0.5-3 MG/3 ml Neb IH SCH (15:00)
[2021-10-09] MEDS ORDERED: Flonase NASAL NS PRN (15:09)
[2021-10-09] MEDS ORDERED: Ventolin Hfa MDI IH PRN (15:09)
[2021-10-09] MEDS ORDERED: VENTOLIN COMMON CANISTER IH PRN (15:29)
[2021-10-09] MEDS: solu-MEDROL 80 MG, Sterile H2O 10 ml 2 ML IV SCH ×2 (18:18)
[2021-10-09] MEDS: PATIENT OWN MEDICATION IH SCH (18:44)
[2021-10-09] MEDS: Requip 0.5 MG PO SCH (21:22)
[2021-10-09] MEDS: ANTIVERT 25 MG PO SCH (21:22)
[2021-10-09] MEDS: ATARAX 25 MG PO PRN (21:51)
[2021-10-09] MEDS: ZOCOR 20MG PO SCH (21:51)
[2021-10-10] MEDS: solu-MEDROL 80 MG, Sterile H2O 10 ml 2 ML IV SCH ×4 (00:25→05:54)
[2021-10-10] MEDS ORDERED: Zofran 4 MG/2 ML VIAL IV PRN (00:43)
[2021-10-10] MEDS: TYLENOL 325 MG PO PRN ×3 (00:45→21:10)
[2021-10-10] MEDS: Lactated Ringers 1,000 ML IV SCH ×2 (04:26→19:30)
[2021-10-10] MEDS: DUONEB 0.5-3 MG/3 ml Neb IH SCH ×4 (05:10→18:56)
--- NOTE | 2021-10-10 08:50 | PCM.HP.ADD ---
Addendum to History & Physical - History & Physical Addendum Addendum to History & Physical: This certifies that the History & Physical in the electronic chart reflects the current health status of the patient. If there are changes in the H&P these changes/exceptions are listed as follows.
--- NOTE | 2021-10-10 09:48 | PCM.NOTE ---
Date and Time: 10/10/21 0944 Subjective Assessment: Pt is feeling better today. Feels like she is moving more air; coughing more. - Review of Systems Constitutional: No Fever Respiratory: Cough, Short Of Breath Objective Exam General Appearance: no apparent distress, alert Neurologic Exam: oriented x 3, cooperative, normal mood/affect Skin Exam: normal color, warm, dry, No rash Eye Exam: eyes nml inspection Ears, Nose, Throat Exam: moist mucous membranes Neck Exam: normal inspection Respiratory Exam: diminished breath sounds (good air exchange), wheezing (expiratory, faint to mod, throughout), No crackles/rales, No rhonchi, No stridor Cardiovascular Exam: regular rate/rhythm, normal heart sounds, No murmur Extremity Exam: normal inspection, No pedal edema, No swelling Back Exam: normal inspection, No rash OBJECTIVE DATA Vital Signs: Vital Signs - 24 hr Temp Pulse Resp BP Pulse Ox 10/10/21 07:41 97.3 F 75 18 143/68 94 L 10/10/21 05:10 73 16 95 10/10/21 04:19 98.1 F 60 20 152/67 96 10/09/21 23:45 98.0 F 76 18 126/60 94 L 10/09/21 19:31 97.1 F 90 18 142/65 93 L 10/09/21 18:46 79 18 93 L 10/09/21 15:47 98.1 F 82 16 127/69 93 L 10/09/21 14:59 96 H 20 98 10/09/21 13:12 97.5 F 86 24 142/87 98 10/09/21 12:04 86 24 98 10/09/21 11:18 97.5 F 86 24 142/87 98 Pain Assessment - Last Documented Pain Intensity 4 Pain Scale Used 0-10 Pain Scale Intake and Output: Intake & Output 10/07/21 10/08/21 10/09/21 10/10/21 11:59 11:59 11:59 11:59 Intake Total 3287 Output Total 600 Balance 2687 Weight 134.4 kg Lab Results: Lab Results-Last 24 Hours 10/09/21 10/09/21 10/09/21 Range/Units 11:16 12:25 12:25 WBC 5.6 (4.0-10.5) K/mm3 RBC 4.27 (4.1-5.4) M/mm3 Hgb 12.0 (12.0-16.0) gm/dl Hct 37.2 (35-47) % MCV 87.1 (78-100) fl MCH 28.1 (26-32) pg MCHC 32.3 (32-36) g/dl RDW 13.8 (11.5-14.0) % Plt Count 205 (150-450) K/mm3 MPV 9.2 (7.5-11.0) fl Segmented Neutrophils 48 (36.0-66.0) % Lymphocytes (Manual) 36 (24-44) % Monocytes (Manual) 10 (0.0-12.0) % Eosinophils (Manual) 3 (0.00-3.0) % Atypical Lymphocytes 3 % Platelet Estimate NORMAL (NORMAL) RBC Morphology NORMAL Sodium 138 (137-145) mmol/L Potassium 3.3 L (3.5-5.1) mmol/L Chloride 104 (98-107) mmol/L Carbon Dioxide 28 (22-30) mmol/L Anion Gap 8.4 (5-15) MEQ/L BUN 9 (7-17) mg/dL Creatinine 0.74 (0.52-1.04) mg/dL Estimated GFR > 60.0 ML/MIN Glucose 92 (74-106) mg/dL Calcium 8.7 (8.4-10.2) mg/dL Total Bilirubin 0.50 (0.2-1.3) mg/dL AST 25 (14-36) U/L ALT 26 (0-35) U/L Alkaline Phosphatase 125 (38-126) U/L Serum Total Protein 6.7 (6.3-8.2) g/dL Albumin 3.6 (3.5-5.0) g/dL Urine Color (YELLOW) Urine Appearance (CLEAR) Urine pH (5-6) Ur Specific Northrop (1.005-1.025) Urine Protein (Negative) Urine Ketones (NEGATIVE) Urine Blood (0-5) Zhen/ul Urine Nitrite (NEGATIVE) Urine Bilirubin (NEGATIVE) Urine Urobilinogen (0-1) mg/dL Ur Leukocyte Esterase (NEGATIVE) Urine WBC (Auto) (0-5) /HPF Urine RBC (Auto) (0-2) /HPF U Epithel Cells (Auto) (FEW) /HPF Urine Bacteria (Auto) (NEGATIVE) /HPF Urine Mucus (Auto) (NEGATIVE) /HPF Urine Culture Reflexed (NO) Urine Glucose (NEGATIVE) mg/dL Influenza Type A Ag NEGATIVE (NEGATIVE) Influenza Type B Ag NEGATIVE (NEGATIVE) RSV (PCR) NEGATIVE (Negative) SARS-CoV-2 (PCR) NEGATIVE (NEGATIVE) 10/09/21 Range/Units 13:27 WBC (4.0-10.5) K/mm3 RBC (4.1-5.4) M/mm3 Hgb (12.0-16.0) gm/dl Hct (35-47) % MCV (78-100) fl MCH (26-32) pg MCHC (32-36) g/dl RDW (11.5-14.0) % Plt Count (150-450) K/mm3 MPV (7.5-11.0) fl Segmented Neutrophils (36.0-66.0) % Lymphocytes (Manual) (24-44) % Monocytes (Manual) (0.0-12.0) % Eosinophils (Manual) (0.00-3.0) % Atypical Lymphocytes % Platelet Estimate (NORMAL) RBC Morphology Sodium (137-145) mmol/L Potassium (3.5-5.1) mmol/L Chloride (98-107) mmol/L Carbon Dioxide (22-30) mmol/L Anion Gap (5-15) MEQ/L BUN (7-17) mg/dL Creatinine (0.52-1.04) mg/dL Estimated GFR ML/MIN Glucose (74-106) mg/dL Calcium (8.4-10.2) mg/dL Total Bilirubin (0.2-1.3) mg/dL AST (14-36) U/L ALT (0-35) U/L Alkaline Phosphatase (38-126) U/L Serum Total Protein (6.3-8.2) g/dL Albumin (3.5-5.0) g/dL Urine Color YELLOW (YELLOW) Urine Appearance CLEAR (CLEAR) Urine pH 6.0 (5-6) Ur Specific Northrop 1.012 (1.005-1.025) Urine Protein NEGATIVE (Negative) Urine Ketones NEGATIVE (NEGATIVE) Urine Blood SMALL (0-5) Zhen/ul Urine Nitrite NEGATIVE (NEGATIVE) Urine Bilirubin NEGATIVE (NEGATIVE) Urine Urobilinogen NEGATIVE (0-1) mg/dL Ur Leukocyte Esterase NEGATIVE (NEGATIVE) Urine WBC (Auto) 0-2 (0-5) /HPF Urine RBC (Auto) 0-2 (0-2) /HPF U Epithel Cells (Auto) NONE (FEW) /HPF Urine Bacteria (Auto) NONE (NEGATIVE) /HPF Urine Mucus (Auto) SLIGHT (NEGATIVE) /HPF Urine Culture Reflexed NO (NO) Urine Glucose NEGATIVE (NEGATIVE) mg/dL Influenza Type A Ag (NEGATIVE) Influenza Type B Ag (NEGATIVE) RSV (PCR) (Negative) SARS-CoV-2 (PCR) (NEGATIVE) Radiology Exams: Radiology Procedures Category Date Time Status CHEST 1 VIEW (PORTABLE) Stat Exams 10/09/21 12:19 Completed Assessment/Plan (1) Pneumonia Current Visit: Yes Status: Acute Qualifiers: Pneumonia type: due to unspecified organism Laterality: left Lung location: unspecified part of lung Qualified Code(s): J18.9 - Pneumonia, unspecified organism Assessment & Plan: ON IV rocephin and zithromax day #2. Doing much better. Will start decreaseing the steroids today and she may get to go home on po antibiotics and steroids tomorrow. Code(s): J18.9 - PNEUMONIA, UNSPECIFIED ORGANISM (2) Asthma Current Visit: Yes Status: Chronic Qualifiers: Asthma severity: moderate Asthma persistence: persistent Asthma complication type: with acute exacerbation Qualified Code(s): J45.41 - Moderate persistent asthma with (acute) exacerbation Code(s): J45.909 - UNSPECIFIED ASTHMA, UNCOMPLICATED (3) DVT prophylaxis Current Visit: No Status: Acute Code(s): Z29.9 - ENCOUNTER FOR PROPHYLACTIC MEASURES, UNSPECIFIED (4) Nocturnal hypoxia Current Visit: No Status: Acute Assessment & Plan: Would like overnight pulse ox study here to determine if qualifies for home o2. Code(s): G47.34 - IDIO SLEEP RELATED NONOBSTRUCTIVE ALVEOLAR HYPOVENTILATION
[2021-10-10] MEDS ORDERED: NON-FORMULARY ITEM (Atorvastatin Calcium [Atorvastatin Calcium] 20 MG Tablet) PO SCH (10:00)
[2021-10-10] MEDS ORDERED: NON-FORMULARY ITEM (Omeprazole [Omeprazole] 20 MG Tab.Rap.Dr) PO SCH (10:00)
[2021-10-10] MEDS ORDERED: ZOCOR 20MG PO SCH (10:00)
[2021-10-10] MEDS: PATIENT OWN MEDICATION IH SCH (10:13)
[2021-10-10] MEDS: Requip 0.5 MG PO SCH ×3 (10:33→21:09)
[2021-10-10] MEDS: ANTIVERT 25 MG PO SCH ×3 (10:33→21:09)
[2021-10-10] MEDS: Protonix 40MG Tablet PO SCH (10:33)
[2021-10-10] MEDS: Zestril 10 MG PO SCH (10:33)
[2021-10-10] MEDS: Singulair 10 MG PO SCH (10:34)
[2021-10-10] MEDS: ROCEPHIN 1 Gm-D5w 50 ml Bag** 1 G/50 ML IVPB IV SCH (10:34)
[2021-10-10] MEDS: ceLEXa 20 MG PO SCH (10:34)
[2021-10-10] MEDS: Toprol-Xl 25MG Tablets PO SCH (10:34)
[2021-10-10 10:48] LABS: Hematocrit 39.4 % (35-47); Hemoglobin 12.8 gm/dl (12.0-16.0); Mean Cell Volume 86.8 fl (78-100); Mean Corpuscular Hemoglobin 28.2 pg (26-32); Mean Corpuscular Hgb Concent. 32.5 g/dl (32-36); Mean Platelet Volume 9.6 fl (7.5-11.0); Platelet Count 233 K/mm3 (150-450); Red Blood Count 4.54 M/mm3 (4.1-5.4); Red Cell Distribution Width 13.9 % (11.5-14.0); White Blood Count 8.8 K/mm3 (4.0-10.5)
[2021-10-10 11:14] LABS: ANION GAP 12.3 MEQ/L (5-15); BLOOD UREA NITROGEN 10 mg/dL (7-17); CHLORIDE 104 mmol/L (98-107); Calcium 9.1 mg/dL (8.4-10.2); Carbon Dioxide 27 mmol/L (22-30); Creatinine 1 0.59 mg/dL (0.52-1.04); EST GLOMERULAR FILTRATION RATE > 60.0 ML/MIN; Glucose 290 mg/dL (74-106); SODIUM 140 mmol/L (137-145)
[2021-10-10] MEDS ORDERED: K-LYTE 25 MEQ PO ONE (11:33)
[2021-10-10 11:35] LABS: Lymphocytes 14 % (24-44); Monocyte 1 % (0.0-12.0); Neutrophils 85 % (36.0-66.0); Platelet Estimate NORMAL (NORMAL); Total Cells Counted 100
[2021-10-10 11:39] LABS: Erythrocyte Sedimentation Rate 60 mm/hr (0-20)
[2021-10-10] MEDS: Zithromax 500 MG/ 250 ML NaCl Premix 500 MG/250 ML IVPB IV SCH (11:41)
[2021-10-10] MEDS: Namenda 5 MG PO SCH ×2 (13:47→21:09)
[2021-10-10] MEDS: solu-MEDROL 40 MG, Sterile H2O 10 ml 1 ML IV SCH ×4 (13:47→21:10)
[2021-10-10 17:27] LABS: MAGNESIUM 1.9 mg/dL (1.6-2.3); Potassium 3.1 mmol/L (3.5-5.1)
[2021-10-10] MEDS: Klor Con 10 MEQ PO SCH (21:09)
[2021-10-10] MEDS: ZOCOR 20MG PO SCH (21:09)
[2021-10-10] MEDS: ATARAX 25 MG PO PRN (21:11)
[2021-10-10] MEDS ORDERED: Aricept 10 MG PO SCH (22:00)
[2021-10-10] MEDS ORDERED: DUONEB 0.5-3 MG/3 ml Neb IH PRN (23:42)
[2021-10-11] MEDS: solu-MEDROL 40 MG, Sterile H2O 10 ml 1 ML IV SCH ×2 (06:08)
[2021-10-11] MEDS: Lactated Ringers 1,000 ML IV SCH (06:15)
[2021-10-11] MEDS: TYLENOL 325 MG PO PRN ×2 (06:15→12:34)
[2021-10-11] MEDS: DUONEB 0.5-3 MG/3 ml Neb IH SCH ×2 (07:04→10:27)
[2021-10-11] MEDS: PATIENT OWN MEDICATION IH SCH (07:07)
[2021-10-11 09:10] LABS: ANION GAP 12.7 MEQ/L (5-15); BLOOD UREA NITROGEN 14 mg/dL (7-17); CHLORIDE 105 mmol/L (98-107); Carbon Dioxide 28 mmol/L (22-30); Creatinine 1 0.63 mg/dL (0.52-1.04); EST GLOMERULAR FILTRATION RATE > 60.0 ML/MIN; Glucose 162 mg/dL (74-106); Potassium 3.9 mmol/L (3.5-5.1); SODIUM 142 mmol/L (137-145)
[2021-10-11] MEDS ORDERED: Sodium Chloride 0.9% 500 ML 500 ML IV ONE (09:39)
[2021-10-11] MEDS: ROCEPHIN 1 Gm-D5w 50 ml Bag** 1 G/50 ML IVPB IV SCH (09:45)
[2021-10-11] MEDS: Namenda 5 MG PO SCH (09:46)
[2021-10-11] MEDS: Singulair 10 MG PO SCH (09:47)
[2021-10-11] MEDS: Zestril 10 MG PO SCH (09:47)
[2021-10-11] MEDS: ceLEXa 20 MG PO SCH (09:47)
[2021-10-11] MEDS: Klor Con 10 MEQ PO SCH (09:47)
[2021-10-11] MEDS: Requip 0.5 MG PO SCH (09:48)
[2021-10-11] MEDS: ANTIVERT 25 MG PO SCH (09:48)
[2021-10-11] MEDS: Toprol-Xl 25MG Tablets PO SCH (09:48)
[2021-10-11] MEDS: Protonix 40MG Tablet PO SCH (09:48)
[2021-10-11] MEDS: Zithromax 500 MG/ 250 ML NaCl Premix 500 MG/250 ML IVPB IV SCH (11:10)
--- NOTE | 2021-10-11 11:53 | PCM.DS ---
Discharge Summary Date of Admission: 10/09/21 11:10 Admitting Physician: FINA MARTIN Primary Care Provider: FINA MARTIN Allergies Allergies diphenhydramine [From Benadryl] Allergy (Verified 09/09/21 16:28) [facility] Summary - Hospital Course Hospital Course: Pt is a 61 yo female with asthma who was admitted from office; found to have L sided pneumonia. Placed on rocephin, zithromax, and IV steroids. She improved with treatment; will be discharged to home on po antibiotics and steroids. She has only been on O2 at night (which is also her home regimen). Her potassium was low during the admission; was given 20mEq K+ BID and potassium increased from 3.0 to 3.9. She will be discharged on 10 mEq po BID potassium and rechecked in 1 week outpatient. She is having some loose stools. Will add probiotic to her medication regimen. She will f/u with me in 1 week. - Vitals & Intake/Output Vital Signs: Vital Signs Temperature 97.1 F 10/11/21 08:00 Pulse Rate 70 10/11/21 10:31 Respiratory Rate 18 10/11/21 10:31 Blood Pressure 147/91 10/11/21 08:00 O2 Sat by Pulse Oximetry 95 10/11/21 10:31 Intake & Output: Intake & Output 10/08/21 10/09/21 10/10/21 10/11/21 11:59 11:59 11:59 11:59 Intake Total 3287 3125 Output Total 600 200 Balance 2687 2925 Weight 134.4 kg - Lab Result Diagrams: 10/10/21 10:30 10/11/21 08:39 Lab Results-Last 24 Hrs: Lab Results-Last 24 Hours 10/10/21 10/11/21 Range/Units 17:05 08:39 Sodium 142 (137-145) mmol/L Potassium 3.1 L 3.9 D (3.5-5.1) mmol/L Chloride 105 (98-107) mmol/L Carbon Dioxide 28 (22-30) mmol/L Anion Gap 12.7 (5-15) MEQ/L BUN 14 (7-17) mg/dL Creatinine 0.63 (0.52-1.04) mg/dL Estimated GFR > 60.0 ML/MIN Glucose 162 H (74-106) mg/dL Calcium 9.0 (8.4-10.2) mg/dL Magnesium 1.9 (1.6-2.3) mg/dL - Radiology Exams Ordered Rad Exams-Entire Visit: Radiology Procedures Category Date Time Status CHEST 1 VIEW (PORTABLE) Stat Exams 10/09/21 12:19 Completed - Procedures and Test Procedures and Tests throughout Hospitalization: Therapy Orders & Screens 10/09/21 11:32 Respiratory Therapy Assessment DAILY Comment: 10/09/21 11:33 Oxygen Nasal Cannula 2 lpm Comment: 2L at night 10/09/21 11:35 Respiratory MDI UD Comment: 10/09/21 12:01 Respiratory Therapy Consult ONCE Comment: Reason For Exam: ASTHMA 10/09/21 13:26 RT Screen per Nursing Assess ONCE Comment: Protocol Order Physician Instructions: Greater than 3 points order RT Admission Screen Reason For Exam: Triggered on Admission Diagnosis: asthma exac; AMS Diagnosis: asthma exac; AMS Pneumonia: No Home O2: Yes Asthma: Yes CHF: No Home CPAP/BIPAP: Yes Home Nebs/MDI: Yes Total Points: 19 Discharge Exam General Appearance: no apparent distress, alert, obese Neurologic Exam: oriented x 3, cooperative, normal mood/affect Eye Exam: eyes nml inspection Ears, Nose, Throat Exam: moist mucous membranes Neck Exam: normal inspection Respiratory Exam: diminished breath sounds (good air exchange), wheezing (expiratory, faint, throughout), No crackles/rales, No rhonchi Cardiovascular Exam: regular rate/rhythm, normal heart sounds, No murmur Gastrointestinal/Abdomen Exam: normal bowel sounds, No distention Back Exam: normal inspection, No rash Extremity Exam: normal inspection, No pedal edema, No swelling Final Diagnosis/Problem List - Final Discharge Diagnosis/Problem (1) Pneumonia Current Visit: Yes Status: Acute Assessment & Plan: Home on po augmentin (finished 3d of rocephin and zithromax IV). Code(s): J18.9 - PNEUMONIA, UNSPECIFIED ORGANISM (2) Asthma Current Visit: Yes Status: Chronic Assessment & Plan: Still has some faint wheezing - po steroids at home. I've given her detailed i nstructions about coming to ER if difficulty breathing or increased wheezing at home. Code(s): J45.909 - UNSPECIFIED ASTHMA, UNCOMPLICATED (3) Nocturnal hypoxia Current Visit: No Status: Chronic Code(s): G47.34 - IDIO SLEEP RELATED NONOBSTRUCTIVE ALVEOLAR HYPOVENTILATION - Discharge Disposition: Home, Self-Care Condition: Stable Prescriptions: New Lactobacillus Acidophilus [Acidophilus TABLET] 1 tab PO BID #14 tablet Amox Tr/Potass Clav. 875 mg [Augmentin 875-125 Tablet] 875 mg PO BID #14 tablet Prednisone 20 mg [Deltasone 20 mg] 20 mg PO DAILY #17 tablet Albuterol/Ipratropium 3ml Neb* [DUONEB 0.5-3 MG/3 ml Neb] 3 ml IH QID PRN PRN #20 unit PRN Reason: Shortness Of Breath/Wheezing Guaifenesin 600 mg ER [Mucinex 600MG ER Tabs] 600 mg PO BID #14 tablet Potassium Chloride 10 meq PO BID #30 tab Continue Albuterol Sulfate [Albuterol Sulfate Hfa] 2 puff IH Q6HPRN PRN PRN Reason: Shortness Of Breath/Wheezing No Action Fluticasone Propionate [Flonase NASAL] 2 spray NS DAILY PRN PRN Reason: Allergies Hydroxyzine HCl 25 mg [Atarax 25 mg] 25 mg PO Q4H PRN PRN #20 tablet PRN Reason: Itching Montelukast Sodium 10 mg [Singulair 10 MG] 10 mg PO DAILY #30 tablet Lisinopril 10 mg [Zestril 10 MG] 10 mg PO DAILY #30 tablet Citalopram Hydrobromide [Celexa] 40 mg PO DAILY Memantine HCl 10 mg PO BID Fluticasone/Umeclidin/Vilanter [Trelegy Ellipta 200-62.5-25] 1 puff IH DAILY Ropinirole HCl 0.5 mg PO TID Atorvastatin Calcium 20 mg PO DAILY Ergocalciferol (Vitamin D2) [Vitamin D2] 1,250 mcg PO WEEKLY Omeprazole 20 mg PO DAILY Meclizine HCl 25 mg [Antivert 25 mg] 25 mg PO TID Donepezil HCl 10 mg PO HS Metoprolol Succinate 25 mg PO DAILY Outpatient Orders: BMP Time Frame: 1 Week, Facility: [facility], Location: LABORATORY Follow up with: FINA MARTIN [Primary Care Provider] -
--- NOTE | 2021-10-11 11:58 | PCM.DCORD ---
- Discharge Disposition: Home, Self-Care Condition: Stable Prescriptions: New Lactobacillus Acidophilus [Acidophilus TABLET] 1 tab PO BID #14 tablet Amox Tr/Potass Clav. 875 mg [Augmentin 875-125 Tablet] 875 mg PO BID #14 tablet Prednisone 20 mg [Deltasone 20 mg] 20 mg PO DAILY #17 tablet Albuterol/Ipratropium 3ml Neb* [DUONEB 0.5-3 MG/3 ml Neb] 3 ml IH QID PRN PRN #20 unit PRN Reason: Shortness Of Breath/Wheezing Guaifenesin 600 mg ER [Mucinex 600MG ER Tabs] 600 mg PO BID #14 tablet Potassium Chloride 10 meq PO BID #30 tab Continue Albuterol Sulfate [Albuterol Sulfate Hfa] 2 puff IH Q6HPRN PRN PRN Reason: Shortness Of Breath/Wheezing Fluticasone Propionate [Flonase NASAL] 2 spray NS DAILY PRN PRN Reason: Allergies Hydroxyzine HCl 25 mg [Atarax 25 mg] 25 mg PO Q4H PRN PRN #20 tablet PRN Reason: Itching Montelukast Sodium 10 mg [Singulair 10 MG] 10 mg PO DAILY #30 tablet Lisinopril 10 mg [Zestril 10 MG] 10 mg PO DAILY #30 tablet Citalopram Hydrobromide [Celexa] 40 mg PO DAILY Memantine HCl 10 mg PO BID Fluticasone/Umeclidin/Vilanter [Trelegy Ellipta 200-62.5-25] 1 puff IH DAILY Ropinirole HCl 0.5 mg PO TID Atorvastatin Calcium 20 mg PO DAILY Ergocalciferol (Vitamin D2) [Vitamin D2] 1,250 mcg PO WEEKLY Omeprazole 20 mg PO DAILY Donepezil HCl 10 mg PO HS Metoprolol Succinate 25 mg PO DAILY Discontinued Meclizine HCl 25 mg [Antivert 25 mg] 25 mg PO TID Outpatient Orders: BMP Time Frame: 1 Week, Facility: [facility], Location: LABORATORY Follow up with: FINA MARTIN [Primary Care Provider] - 10/15/21 2:15 pm
[2021-10-11 14:13] VITALS: BP 179/79; PULSE 78; O2SAT 94
== END 2021-10-11 13:00 | disposition home or self-care (01) ==
LOC: MED SURG 11:10
PROVIDERS: ADMIT Family Medicine; ATTEND Family Medicine
DX: J18.9 Pneumonia, unspecified organism (principal); J45.909 Unspecified asthma, uncomplicated; J96.11 Chronic respiratory failure with hypoxia; G47.34 Idiopathic sleep related nonobstructive alveolar hypoventilation; R51.9 Headache, unspecified; Z79.899 Other long term (current) drug therapy; Z99.81 Dependence on supplemental oxygen; Z29.9 Encounter for prophylactic measures, unspecified; Z20.828 Contact with and (suspected) exposure to other viral communicable diseases
CPT/HCPCS: 0241U; 36415; 71045; 80048; 80053; 81001; 83735; 84132; 85025; 85652; 94640; 94760; G0378; J0456; J0696; J2920; J2930; A9270-GY

== ENCOUNTER 2022-03-20 15:07 | Emergency (ER) | payer OTHER ==
[2022-03-20] MEDS ORDERED: Reglan 10 MG/2 ML IV ONE (15:57)
[2022-03-20] MEDS ORDERED: Sodium Chloride 0.9% 1000 ML 1,000 ML IV STA (15:57)
[2022-03-20] MEDS ORDERED: TYLENOL 325 MG PO ONE (15:57)
[2022-03-20] MEDS ORDERED: TORAdol 30 mg Injection IV ONE (15:57)
--- NOTE | 2022-03-20 15:57 | XRAY ---
Indication: Headache for days. Multiple contiguous axial images obtained through the head without contrast. Comparison: January 27, 2020 Normal appearing brain parenchyma, ventricles, and bony calvarium. Visualized paranasal sinuses and mastoid air cells are clear. Impression: Continued normal CT head without contrast exam.
[2022-03-20] MEDS ORDERED: TORAdol 30 mg Injection ONE (16:09)
[2022-03-20 16:10] LABS: Absolute Neutrophil Ct (ANC) 4.81 x10^3/uL (1.4-6.9); Basophil (Absolute #) 0.02 x10^3/uL (0-0.4); Eosinophil (Absolute #) 0.12 x10^3/uL (0-0.5); Hematocrit 39.1 % (35-47); Hemoglobin 12.4 g/dL (12.0-16.0); Lymphocyte (Absolute #) 0.55 x10^3/uL (1.0-4.6); Mean Cell Volume 87.7 fL (78-100); Mean Corpuscular Hemoglobin 27.8 pg (26-32); Mean Corpuscular Hgb Concent. 31.7 g/dL (32-36); Mean Platelet Volume 9.2 fL (7.5-11.0); Monocyte (Absolute #) 0.59 x10^3/uL (0.0-1.3); Monocytes % 9.7 % (0.0-12.0); Neutrophil % 78.7 % (36.0-66.0); Platelet Count 195 x10^3/uL (150-450); Red Blood Count 4.46 x10^6/uL (4.1-5.4); Red Cell Distribution Width 13.5 % (11.5-14.0); White Blood Count 6.1 x10^3/uL (4.0-10.5)
[2022-03-20] MEDS ORDERED: TYLENOL 325 MG ONE (16:10)
[2022-03-20] MEDS ORDERED: Reglan 10 MG/2 ML ONE (16:10)
[2022-03-20] MEDS ORDERED: Sodium Chloride 0.9% 1000 ML 1,000 ML ONE (16:10)
[2022-03-20 16:29] LABS: ALBUMIN 3.9 g/dL (3.5-5.0); ALKALINE PHOSPHATASE 130 U/L (38-126); BLOOD UREA NITROGEN 14 mg/dL (7-17); CHLORIDE 101 mmol/L (98-107); Calcium 9.2 mg/dL (8.4-10.2); Carbon Dioxide 28 mmol/L (22-30); Creatinine 1 0.91 mg/dL (0.52-1.04); EST GLOMERULAR FILTRATION RATE > 60.0 ML/MIN; Glucose 92 mg/dL (74-106); Potassium 4.2 mmol/L (3.5-5.1); SGOT/AST 25 U/L (14-36); SGPT/ALT 20 U/L (0-35); SODIUM 135 mmol/L (137-145); Total Protein 6.9 g/dL (6.3-8.2)
[2022-03-20 16:35] LABS: Bacteria RARE /HPF (NEGATIVE); Epithelial Cells RARE /HPF (FEW); RBC 0-2 /HPF (0-2); WBC 0-2 /HPF (0-5)
[2022-03-20 16:36] LABS: Appearance CLEAR (CLEAR); Bilirubin NEGATIVE (NEGATIVE); Dipstick done @ ? MAIN LAB; Glucose NEGATIVE (NEGATIVE); Ketones NEGATIVE (NEGATIVE); Nitrite NEGATIVE (NEGATIVE); Ph 8.5 (5-6); Protein,Urine Dip NEGATIVE (Negative); RBC NEGATIVE Ery/ul (0-5); Specific Gravity 1.015 (1.005-1.025); Urine Cultured Indicated? NO; Urobilinogen 0.2 mg/dL (0-1)
[2022-03-20 16:48] LABS: Amphetamine,Urine NEGATIVE (NEGATIVE); Barbiturate,Urine NEGATIVE (NEGATIVE); Benzodiazepine,Urine NEGATIVE (NEGATIVE); Cocaine,Urine NEGATIVE (NEGATIVE); Methadone,Urine NEGATIVE (NEGATIVE); Opiate,Urine NEGATIVE (NEGATIVE); PCP,Urine NEGATIVE (NEGATIVE); THC,Urine NEGATIVE (NEGATIVE)
[2022-03-20 17:04] LABS: INFLUENZA A NEGATIVE (NEGATIVE); INFLUENZA B NEGATIVE (NEGATIVE); RESPIRATORY SYNCTIAL VIRUS NEGATIVE (Negative)
[2022-03-20 17:10] LABS: SARS-CoV-2 Xpert Express POSITIVE (NEGATIVE)
--- NOTE | 2022-03-20 17:29 | ERPHSYRPT ---
- History of Present Illness Time Seen by Provider: 03/20/22 15:15 Patient Subjective Stated Complaint: pt here for a headache that started this morning, she states her left hand is also numb, she is a poor historian. co aslo being nauseated and dizzy. Triage Nursing Assessment: pt alert, assist of one to get out of wc and undressed, skin w/d/p. resp easy, no cough, face mask applied, no cough, speech clear, moves all ext Physician History: 61 years old female with history of early dementia, hypertension, hyperlipidemia, migraines presented to the ER with headache since yesterday on the left frontal area and behind eye, moderate to severe sharp throbbing with associated nausea but no vomiting. Also reports increase sensitivity to light and has taken [id number] pain medication with no significant relief. Patient reports occasionally feeling numbness in both fingertips and sometimes around both knees. Denies any chest pain palpitations or shortness of breath. No fever or chills reported. Patient reports having headache different than his usual migraine headache and thinks this is the worst headache of her life. Denies any visual disturbance or floaters. Denies any sick contact. Timing/Duration: yesterday, constant, gradual onset, worse Quality: sharpness Head Pain Location: frontal Severity of Pain-Max: severe Severity of Pain-Current: severe Recent Head Trauma: no recent headache/trauma, frequent headaches Modifying Factors: Worsens With: exposure to light Associated Symptoms: dizziness, fatigue, light-headedness, nausea/vomiting, se nsitive to light, weakness, No fever/chills, No loss of consciousness, No nasal congestion, No nasal drainage, No neck pain, No numbness in legs/feet, No sweating, No seizures, No sinus infection, No speech problems, No stiff neck, No trouble walking, No vision changes, No visual disturbance Previous symptoms: different symptoms Allergies/Adverse Reactions: diphenhydramine [From Benadryl] Allergy (Verified 03/20/22 15:16) Hives Home Medications: Albuterol Sulfate [Albuterol Sulfate Hfa] 2 puff IH Q6HPRN PRN 12/27/19 [History] Fluticasone Propionate [Flonase NASAL] 2 spray NS DAILY PRN 12/27/19 [History] Citalopram Hydrobromide [Celexa] 40 mg PO DAILY 10/18/20 [History] Fluticasone/Umeclidin/Vilanter [Trelegy Ellipta 200-62.5-25] 1 puff IH DAILY 10/18/20 [History] Memantine HCl 10 mg PO BID 10/18/20 [History] Atorvastatin Calcium 20 mg PO DAILY 10/09/21 [History] Donepezil HCl 10 mg PO HS 10/09/21 [History] Ergocalciferol (Vitamin D2) [Vitamin D2] 1,250 mcg PO WEEKLY 10/09/21 [History] Metoprolol Succinate 25 mg PO DAILY 10/09/21 [History] Omeprazole 20 mg PO DAILY 10/09/21 [History] Ropinirole HCl 0.5 mg PO TID 10/09/21 [History] Hx Tetanus, Diphtheria Vaccination/Date Given: No Hx Influenza Vaccination/Date Given: No Hx Pneumococcal Vaccination/Date Given: No Immunizations Up to Date: Yes Travel Risk - International Travel Have you traveled outside of the country in past 3 weeks: No - Coronavirus Screening Are you exhibiting any of the following symptoms?: No Close contact with a COVID-19 positive Pt in past 14-21 Days: No - Vaccine Status Have you recieved a Covid-19 vaccination: Yes Block Sealer: Blossom - Review of Systems Constitutional: Fatigue, Weakness Eyes: No Symptoms Ears, Nose, & Throat: No Symptoms Respiratory: No Symptoms Cardiac: No Symptoms Abdominal/Gastrointestinal: Nausea Genitourinary Symptoms: No Symptoms Musculoskeletal: No Symptoms Skin: No Symptoms Neurological: Dizziness, Headache Psychological: Anxiety Endocrine: No Symptoms Hematologic/Lymphatic: No Symptoms Immunological/Allergic: No Symptoms - Past Medical History Pertinent Past Medical History: Yes Neurological History: Dementia ENT History: No Pertinent History Cardiac History: High Cholesterol, Hypertension Respiratory History: Sleep Apnea, Asthma Endocrine Medical History: No Pertinent History Musculoskeletal History: Other GI Medical History: GERD History: No Pertinent History Psycho-Social History: Anxiety, Depression Female Reproductive Disorders: No Pertinent History Other Medical History: plantar fasciitis. BACK PAIN YRS AGO - Past Surgical History Past Surgical History: Yes Neuro Surgical History: No Pertinent History Cardiac: No Pertinent History Respiratory: No Pertinent History Gastrointestinal: Cholecystectomy Genitourinary: No Pertinent History Musculoskeletal: Other Female Surgical History: Hysterectomy, Tubal Ligation Other Surgical History: plantar fasciitis surgery - Social History Smoking Status: Never smoker How long have you smoked: 27 years Exposure to second hand smoke: No Drug Use: none Patient Lives Alone: No - Nursing Vital Signs Nursing Vital Signs: Initial Vital Signs Temperature 99.5 F 03/20/22 15:30 Pulse Rate 89 03/20/22 15:30 Respiratory Rate 18 03/20/22 15:30 Blood Pressure 147/50 03/20/22 15:30 O2 Sat by Pulse Oximetry 100 03/20/22 15:30 Pain Scale Pain Intensity 0 - Physical Exam General Appearance: no apparent distress, alert Eye Exam: PERRL/EOMI, eyes nml inspection Ears, Nose, Throat Exam: normal ENT inspection, TMs normal, pharynx normal, moist mucous membranes Neck Exam: normal inspection, non-tender, supple, full range of motion Respiratory Exam: normal breath sounds, lungs clear Cardiovascular Exam: regular rate/rhythm, normal heart sounds Gastrointestinal/Abdominal Exam: soft, normal bowel sounds, No tenderness, No guarding Back Exam: normal inspection Extremity Exam: normal inspection, normal range of motion, pelvis stable Mental Status Exam: alert, oriented x 3, cooperative head cook Exam: normal hearing, normal speech, PERRL Coordination/Gait Exam: normal finger to nose Motor/Sensory Exam: no motor deficit, no sensory deficit, no pronator drift, negative Babinski's sign DTR Exam: bicep (R): 2+, bicep (L): 2+, knee (R): 2+, knee (L): 2+ Skin Exam: normal color SpO2 Interpretation: normal SpO2: 95 O2 Delivery: Room Air Ordered Tests: Medication Summary Discontinued Medications Generic Name Dose Route Start Last Admin Trade Name Seb PRN Reason Stop Dose Admin Acetaminophen 975 mg 03/20/22 15:57 03/20/22 16:12 Acetaminophen 325 Mg Tablet PO 03/20/22 15:58 975 mg STAT ONE Administration Acetaminophen Confirm 03/20/22 16:10 Acetaminophen 325 Mg Tablet Administered 03/20/22 16:11 Dose 975 mg .ROUTE .STK-MED ONE Sodium Chloride 1,000 mls @ 999 mls/hr 03/20/22 15:57 03/20/22 17:15 Sodium Chloride 0.9% 1000 Ml IV 03/20/22 16:57 Infused .Q1H1M STA Infusion Sodium Chloride Confirm 03/20/22 16:10 Sodium Chloride 0.9% 1000 Ml Administered 03/20/22 16:11 Dose 1,000 mls @ ud .ROUTE .STK-MED ONE Ketorolac Tromethamine 30 mg 03/20/22 15:57 03/20/22 16:12 Ketorolac Tromethamine 30 Mg/Ml Inj IV 03/20/22 15:58 30 mg STAT ONE Administration Ketorolac Tromethamine Confirm 03/20/22 16:09 Ketorolac Tromethamine 30 Mg/Ml Inj Administered 03/20/22 16:10 Dose 30 mg .ROUTE .STK-MED ONE Metoclopramide HCl 10 mg 03/20/22 15:57 03/20/22 16:12 Metoclopramide Hcl 10 Mg/2 Ml Vial IV 03/20/22 15:58 10 mg STAT ONE Administration Metoclopramide HCl Confirm 03/20/22 16:10 Metoclopramide Hcl 10 Mg/2 Ml Vial Administered 03/20/22 16:11 Dose 10 mg .ROUTE .[facility] ONE Lab/Rad Data: Laboratory Result Diagrams 03/20/22 16:00 03/20/22 16:00 Laboratory Results 03/20/22 03/20/22 03/20/22 Range/Units 16:30 16:25 16:24 WBC (4.0-10.5) x10^3/uL RBC (4.1-5.4) x10^6/uL Hgb (12.0-16.0) g/dL Hct (35-47) % MCV (78-100) fL MCH (26-32) pg MCHC (32-36) g/dL RDW (11.5-14.0) % Plt Count (150-450) x10^3/uL MPV (7.5-11.0) fL Gran % (36.0-66.0) % Immature Gran % (Auto) (0.00-0.4) % Nucleat RBC Rel Count (0.00-0.1) % Eos # (Auto) (0-0.5) x10^3/uL Immature Gran # (Auto) (0.00-0.03) x10^3u/L Absolute Lymphs (auto) (1.0-4.6) x10^3/uL Absolute Monos (auto) (0.0-1.3) x10^3/uL Absolute Nucleated RBC (0.00-0.01) x10^3u/L Lymphocytes % (24.0-44.0) % Monocytes % (0.0-12.0) % Eosinophils % (0.00-5.0) % Basophils % (0.0-0.4) % Absolute Granulocytes (1.4-6.9) x10^3/uL Basophils # (0-0.4) x10^3/uL Sodium (137-145) mmol/L Potassium (3.5-5.1) mmol/L Chloride (98-107) mmol/L Carbon Dioxide (22-30) mmol/L Anion Gap (5-15) MEQ/L BUN (7-17) mg/dL Creatinine (0.52-1.04) mg/dL Estimated GFR ML/MIN Glucose (74-106) mg/dL Lactic Acid (0.4-2.0) Calcium (8.4-10.2) mg/dL Total Bilirubin (0.2-1.3) mg/dL AST (14-36) U/L ALT (0-35) U/L Alkaline Phosphatase (38-126) U/L Ammonia < 9 L (9-30) umol/L Troponin I (0.000-0.034) ng/mL Serum Total Protein (6.3-8.2) g/dL Albumin (3.5-5.0) g/dL Urinalys Dipstick Clnc MAIN LAB Urine Color YELLOW (YELLOW) Urine Appearance CLEAR (CLEAR) Urine pH 8.5 (5-6) Ur Specific [place] 1.015 (1.005-1.025) POC Urine Protein Conf NEGATIVE (Negative) Urine Ketones NEGATIVE (NEGATIVE) Urine Nitrite NEGATIVE (NEGATIVE) Urine Bilirubin NEGATIVE (NEGATIVE) Urine Urobilinogen 0.2 (0-1) mg/dL Urine Leukocytes NEGATIVE (NEGATIVE) Urine WBC (Auto) 0-2 (0-5) /HPF Urine RBC (Auto) 0-2 (0-2) /HPF U Epithel Cells (Auto) RARE (FEW) /HPF Urine Bacteria (Auto) RARE (NEGATIVE) /HPF Urine RBC NEGATIVE (0-5) Zhen/ul Ur Culture Indicated? NO Urine Glucose NEGATIVE (NEGATIVE) mg/dL Urine Opiates Level (NEGATIVE) Ur Methadone (NEGATIVE) Urine Barbiturates (NEGATIVE) Ur Phencyclidine (PCP) (NEGATIVE) Urine Amphetamine (NEGATIVE) U Benzodiazepine Level (NEGATIVE) Urine Cocaine (NEGATIVE) Urine Marijuana (THC) (NEGATIVE) Influenza Type A Ag NEGATIVE (NEGATIVE) Influenza Type B Ag NEGATIVE (NEGATIVE) RSV (PCR) NEGATIVE (Negative) SARS-CoV-2 (PCR) POSITIVE A (NEGATIVE) 03/20/22 03/20/22 03/20/22 Range/Units 16:18 16:15 16:00 WBC (4.0-10.5) x10^3/uL RBC (4.1-5.4) x10^6/uL Hgb (12.0-16.0) g/dL Hct (35-47) % MCV (78-100) fL MCH (26-32) pg MCHC (32-36) g/dL RDW (11.5-14.0) % Plt Count (150-450) x10^3/uL MPV (7.5-11.0) fL Gran % (36.0-66.0) % Immature Gran % (Auto) (0.00-0.4) % Nucleat RBC Rel Count (0.00-0.1) % Eos # (Auto) (0-0.5) x10^3/uL Immature Gran # (Auto) (0.00-0.03) x10^3u/L Absolute Lymphs (auto) (1.0-4.6) x10^3/uL Absolute Monos (auto) (0.0-1.3) x10^3/uL Absolute Nucleated RBC (0.00-0.01) x10^3u/L Lymphocytes % (24.0-44.0) % Monocytes % (0.0-12.0) % Eosinophils % (0.00-5.0) % Basophils % (0.0-0.4) % Absolute Granulocytes (1.4-6.9) x10^3/uL Basophils # (0-0.4) x10^3/uL Sodium (137-145) mmol/L Potassium (3.5-5.1) mmol/L Chloride (98-107) mmol/L Carbon Dioxide (22-30) mmol/L Anion Gap (5-15) MEQ/L BUN (7-17) mg/dL Creatinine (0.52-1.04) mg/dL Estimated GFR ML/MIN Glucose (74-106) mg/dL Lactic Acid 1.2 (0.4-2.0) Calcium (8.4-10.2) mg/dL Total Bilirubin (0.2-1.3) mg/dL AST (14-36) U/L ALT (0-35) U/L Alkaline Phosphatase (38-126) U/L Ammonia (9-30) umol/L Troponin I < 0.012 (0.000-0.034) ng/mL Serum Total Protein (6.3-8.2) g/dL Albumin (3.5-5.0) g/dL Urinalys Dipstick Clnc Urine Color (YELLOW) Urine Appearance (CLEAR) Urine pH (5-6) Ur Specific [place] (1.005-1.025) POC Urine Protein Conf (Negative) Urine Ketones (NEGATIVE) Urine Nitrite (NEGATIVE) Urine Bilirubin (NEGATIVE) Urine Urobilinogen (0-1) mg/dL Urine Leukocytes (NEGATIVE) Urine WBC (Auto) (0-5) /HPF Urine RBC (Auto) (0-2) /HPF U Epithel Cells (Auto) (FEW) /HPF Urine Bacteria (Auto) (NEGATIVE) /HPF Urine RBC (0-5) Zhen/ul Ur Culture Indicated? Urine Glucose (NEGATIVE) mg/dL Urine Opiates Level NEGATIVE (NEGATIVE) Ur Methadone NEGATIVE (NEGATIVE) Urine Barbiturates NEGATIVE (NEGATIVE) Ur Phencyclidine (PCP) NEGATIVE (NEGATIVE) Urine Amphetamine NEGATIVE (NEGATIVE) U Benzodiazepine Level NEGATIVE (NEGATIVE) Urine Cocaine NEGATIVE (NEGATIVE) Urine Marijuana (THC) NEGATIVE (NEGATIVE) Influenza Type A Ag (NEGATIVE) Influenza Type B Ag (NEGATIVE) RSV (PCR) (Negative) SARS-CoV-2 (PCR) (NEGATIVE) 03/20/22 03/20/22 Range/Units 16:00 16:00 WBC 6.1 (4.0-10.5) x10^3/uL RBC 4.46 (4.1-5.4) x10^6/uL Hgb 12.4 (12.0-16.0) g/dL Hct 39.1 (35-47) % MCV 87.7 (78-100) fL MCH 27.8 (26-32) pg MCHC 31.7 L (32-36) g/dL RDW 13.5 (11.5-14.0) % Plt Count 195 (150-450) x10^3/uL MPV 9.2 (7.5-11.0) fL Gran % 78.7 H (36.0-66.0) % Immature Gran % (Auto) 0.3 (0.00-0.4) % Nucleat RBC Rel Count 0.0 (0.00-0.1) % Eos # (Auto) 0.12 (0-0.5) x10^3/uL Immature Gran # (Auto) 0.02 (0.00-0.03) x10^3u/L Absolute Lymphs (auto) 0.55 L (1.0-4.6) x10^3/uL Absolute Monos (auto) 0.59 (0.0-1.3) x10^3/uL Absolute Nucleated RBC 0.00 (0.00-0.01) x10^3u/L Lymphocytes % 9.0 L (24.0-44.0) % Monocytes % 9.7 (0.0-12.0) % Eosinophils % 2.0 (0.00-5.0) % Basophils % 0.3 (0.0-0.4) % Absolute Granulocytes 4.81 (1.4-6.9) x10^3/uL Basophils # 0.02 (0-0.4) x10^3/uL Sodium 135 L (137-145) mmol/L Potassium 4.2 (3.5-5.1) mmol/L Chloride 101 (98-107) mmol/L Carbon Dioxide 28 (22-30) mmol/L Anion Gap 10.0 (5-15) MEQ/L BUN 14 (7-17) mg/dL Creatinine 0.91 (0.52-1.04) mg/dL Estimated GFR > 60.0 ML/MIN Glucose 92 (74-106) mg/dL Lactic Acid (0.4-2.0) Calcium 9.2 (8.4-10.2) mg/dL Total Bilirubin 0.40 (0.2-1.3) mg/dL AST 25 (14-36) U/L ALT 20 (0-35) U/L Alkaline Phosphatase 130 H (38-126) U/L Ammonia (9-30) umol/L Troponin I (0.000-0.034) ng/mL Serum Total Protein 6.9 (6.3-8.2) g/dL Albumin 3.9 (3.5-5.0) g/dL Urinalys Dipstick Clnc Urine Color (YELLOW) Urine Appearance (CLEAR) Urine pH (5-6) Ur Specific [place] (1.005-1.025) POC Urine Protein Conf (Negative) Urine Ketones (NEGATIVE) Urine Nitrite (NEGATIVE) Urine Bilirubin (NEGATIVE) Urine Urobilinogen (0-1) mg/dL Urine Leukocytes (NEGATIVE) Urine WBC (Auto) (0-5) /HPF Urine RBC (Auto) (0-2) /HPF U Epithel Cells (Auto) (FEW) /HPF Urine Bacteria (Auto) (NEGATIVE) /HPF Urine RBC (0-5) Zhen/ul Ur Culture Indicated? Urine Glucose (NEGATIVE) mg/dL Urine Opiates Level (NEGATIVE) Ur Methadone (NEGATIVE) Urine Barbiturates (NEGATIVE) Ur Phencyclidine (PCP) (NEGATIVE) Urine Amphetamine (NEGATIVE) U Benzodiazepine Level (NEGATIVE) Urine Cocaine (NEGATIVE) Urine Marijuana (THC) (NEGATIVE) Influenza Type A Ag (NEGATIVE) Influenza Type B Ag (NEGATIVE) RSV (PCR) (Negative) SARS-CoV-2 (PCR) (NEGATIVE) - Progress Progress: improved, re-examined Air Movement: good Progress Note: 03/20/22 17:49 61 years old is evaluated for moderate to severe left frontal headache with some nonspecific symptoms. No focal neuro findings. CT head is obtained and is negative for any acute finding. She is given fluids along with Toradol and Reglan, on reevaluation feeling much better with improvement in her headache and generalized weakness. Work-up grossly unremarkable except for positive COVID- 19. Discussed with patient about Paxilovid in detail, went over risk and benefits and she does not want it at this time. She will follow-up outpatient. She has no difficulty breathing, discussed signs symptoms of worsening needing return to ER which she seems understanding. Blood Culture(s) Obtained: No Antibiotics given: No Counseled pt/family regarding: lab results, diagnosis, need for follow-up, rad results - Departure Departure Disposition: Home Clinical Impression: Migraine, COVID-19 virus detected, Viral syndrome Condition: Stable Critical Care Time: No Referrals: FINA MARTIN [Primary Care Provider] - Follow up/PCP as directed (1-2 days for reevaluation) Instructions: Headache, Adult (DC), COVID-19 (DC) Additional Instructions: Take Tylenol/ibuprofen as needed. Follow-up with primary care for reevaluation. May need referral for neurology for migraine to be placed on prophylactic medications.
[2022-03-20 18:12] VITALS: BP 100/50; PULSE 69
[2022-03-22 07:35] VITALS: O2SAT 95
== END 2022-03-20 18:28 | disposition home or self-care (01) ==
LOC: ED 15:07
DX: U07.1 COVID-19 (principal); G43.909 Migraine, unspecified, not intractable, without status migrainosus; R11.0 Nausea; H53.143 Visual discomfort, bilateral; R20.2 Paresthesia of skin; I10 Essential (primary) hypertension; E78.5 Hyperlipidemia, unspecified; Z79.899 Other long term (current) drug therapy; Z20.828 Contact with and (suspected) exposure to other viral communicable diseases
CPT/HCPCS: 0241U; 36000; 36415; 70450; 80053; 80307; 81015; 82140; 83605; 84484; 85025; 96360; 96374; 96375; 99284; P9612; J1885; A9270-GY

== ENCOUNTER 2023-03-19 14:13 | Emergency (ER) | payer MEDICARE ==
[2023-03-19 14:33] VITALS: RESP 18; TEMP 96.7
[2023-03-19] MEDS ORDERED: MORPHINE SULFATE 4 MG INJ IM ONE (14:49)
[2023-03-19] MEDS ORDERED: MORPHINE SULFATE 4 MG INJ ONE (14:53)
--- NOTE | 2023-03-19 14:58 | XRAY ---
Indication: Pain following fall. Comparison: None 3 view right knee demonstrates osteopenia and small fabella. No other bony, articular, or soft tissue abnormalities.
--- NOTE | 2023-03-19 14:59 | ERPHSYRPT ---
- History of Present Illness Time Seen by Provider: 03/19/23 14:17 Source: patient, family Exam Limitations: no limitations Patient Subjective Stated Complaint: pt here for pain to right knee for a week now, she states it caused her to fall twice this week, Triage Nursing Assessment: pt alert, resp easy, skin w/d/p, able to get from wc to bed, no swelling noted Physician History: 61 years old morbidly obese female with history of hypertension, hyperlipidemia, chronic back pain/joint pain presented in the ER with increasing pain right knee and falls couple times this week. Patient report she was seen outpatient and received a shot of pain medication few days ago for her back pain. She noticed increasing pain in the right knee and fell couple of times and cannot hold much pressure because it gives away. Denies hitting her head or injury anywhere else. She is able to move her knee but hurts. More in the anterior knee. No swelling of the knee reported. Allergies/Adverse Reactions: diphenhydramine [From Benadryl] Allergy (Verified 03/19/23 14:18) Hives Home Medications: Albuterol Sulfate [Albuterol Sulfate Hfa] 2 puff IH Q6HPRN PRN 12/27/19 [Hi story] Fluticasone Propionate [Flonase NASAL] 2 spray NS DAILY PRN 12/27/19 [History] Citalopram Hydrobromide [Celexa] 40 mg PO DAILY 10/18/20 [History] Fluticasone/Umeclidin/Vilanter [Trelegy Ellipta 200-62.5-25] 1 puff IH DAILY 10/18/20 [History] Memantine HCl 10 mg PO BID 10/18/20 [History] Donepezil HCl 10 mg PO HS 10/09/21 [History] Ergocalciferol (Vitamin D2) [Vitamin D2] 1,250 mcg PO WEEKLY 10/09/21 [History] Metoprolol Succinate 25 mg PO DAILY 10/09/21 [History] Omeprazole 20 mg PO DAILY 10/09/21 [History] Ropinirole HCl 0.5 mg PO TID 10/09/21 [History] Meloxicam 15 mg PO DAILY 03/18/23 [History] Semaglutide [Ozempic] 0.25 mg SQ WEEKLY 03/18/23 [History] Solifenacin Succinate 10 mg PO DAILY 03/18/23 [History] Hx Tetanus, Diphtheria Vaccination/Date Given: No Hx Influenza Vaccination/Date Given: Yes Hx Pneumococcal Vaccination/Date Given: No Immunizations Up to Date: Yes Travel Risk - International Travel Have you traveled outside of the country in past 3 weeks: No - Coronavirus Screening Are you exhibiting any of the following symptoms?: No Close contact with a COVID-19 positive Pt in past 14-21 Days: No - Vaccine Status Have you recieved a Covid-19 vaccination: Yes Pest Technician: Unknown - Vaccination Dates Dates if Unknown: ? - Review of Systems Constitutional: No Symptoms Eyes: No Symptoms Respiratory: No Symptoms Cardiac: No Symptoms Abdominal/Gastrointestinal: No Symptoms Musculoskeletal: Arthralgias, Back Pain, Fall, Joint Pain Skin: No Symptoms Neurological: No Symptoms - Past Medical History Pertinent Past Medical History: Yes Neurological History: Other ENT History: No Pertinent History Cardiac History: Coronary Artery Disease, High Cholesterol, Hypertension Respiratory History: Asthma, Sleep Apnea Endocrine Medical History: No Pertinent History Musculoskeletal History: Rheumatoid Arthritis GI Medical History: GERD History: No Pertinent History Psycho-Social History: Anxiety, Depression Female Reproductive Disorders: No Pertinent History Other Medical History: PT. REPORTS SHE HAS A DEMENTIA DX - Past Surgical History Past Surgical History: Yes Neuro Surgical History: No Pertinent History Cardiac: No Pertinent History Respiratory: No Pertinent History Gastrointestinal: Cholecystectomy Genitourinary: No Pertinent History Musculoskeletal: Other Female Surgical History: Hysterectomy, Tubal Ligation Other Surgical History: plantar fasciitis surgery - Social History Smoking Status: Never smoker How long have you smoked: 27 years Exposure to second hand smoke: No Drug Use: none Patient Lives Alone: Yes - Nursing Vital Signs Nursing Vital Signs: Initial Vital Signs Temperature 96.7 F 03/19/23 14:22 Pulse Rate 89 03/19/23 14:22 Respiratory Rate 18 03/19/23 14:22 Blood Pressure 181/99 03/19/23 14:22 O2 Sat by Pulse Oximetry 94 L 03/19/23 14:22 Pain Scale Pain Intensity 8 - Physical Exam General Appearance: no apparent distress, alert Neck Exam: normal inspection, full range of motion Cardiovascular/Respiratory Exam: normal breath sounds, regular rate/rhythm Gastrointestinal/Abdominal Exam: soft Back Exam: normal inspection Knees Exam: right knee: bone tenderness (Anterior knee patella/medial malleolus), soft tissue tenderness, left knee: non-tender, bilateral knee: normal inspection, normal range of motion, no evidence of injury Ankle Exam: bilateral ankle: non-tender, normal inspection, normal range of motion, no evidence of injury Neuro/Tendon Exam: normal sensation, normal motor functions, normal tendon functions, responds to pain Mental Status Exam: alert, oriented x 3, cooperative Skin Exam: normal color SpO2 Interpretation: normal SpO2: 94 O2 Delivery: Room Air Ordered Tests: Active Orders 24 hr Category Date Time Status KNEE (3 VIEWS) Stat Exams 03/19/23 14:36 Completed Medication Summary Discontinued Medications Generic Name Dose Route Start Last Admin Trade Name Seb PRN Reason Stop Dose Admin Morphine Sulfate 4 mg 03/19/23 14:49 03/19/23 14:55 Morphine Sulfate 4 Mg/Ml Injection IM 03/19/23 14:50 4 mg STAT ONE Administration Morphine Sulfate Confirm 03/19/23 14:53 Morphine Sulfate 4 Mg/Ml Injection Administered 03/19/23 14:54 Dose 4 mg .ROUTE .PassHat ONE - Progress Progress Note: 03/19/23 15:53 61 years old morbidly obese female with history of hypertension, hyperlipidemia, chronic back pain/joint pain presented in the ER with increasing pain right knee and falls couple times this week. Patient report she was seen outpatient and received a shot of pain medication few days ago for her back pain. She noticed increasing pain in the right knee and fell couple of times and cannot hold much pressure because it gives away. Denies hitting her head or injury anywhere else. She is able to move her knee but hurts. More in the anterior knee. No swelling of the knee reported. Patient has anterior knee tenderness. Intact range of motion but pain. Distal neurovascular intact. She is given morphine for symptomatic relief, reevaluation feeling better. X-rays negative for fracture dislocation. She is recommended Santino wrap, pain medications as needed and outpatient orthopedics follow-up as I think patient possibly have some kind of ligamentous strain. Discussed signs symptoms of worsening needing return to ER which she seems understanding. She is advised to use cane/walker all the time for ambulation to avoid a fall. Counseled pt/family regarding: diagnosis, need for follow-up, rad results Medical Desision Making - Diagnostic Testing Diagnostic test were ordered, analyzed, and reviewed by me: Yes Radiological Interpretation: Reviewed by me - Risk of complications The pt has a mod risk of morbidity or mortality based on: Need for prescription drug management - Departure Departure Disposition: Home Clinical Impression: Strain of right knee Condition: Stable Critical Care Time: No Referrals: KAREN WALKER NP, RN [Primary Care Provider] - Follow up with PCP 1 day ORTHO - JOSE KRAMER NP [NON-STAFF PHY W/O PRIVILEGES] - Follow up/PCP as directed (In 1 to 2 days for reevaluation) Instructions: Knee Sprain (DC), Knee Pain (DC) Additional Instructions: Use cane/walker for ambulation to avoid a fall. Take pain medications as needed . Follow-up with primary care/orthopedics for reevaluation. Return to ER for any worsening. Prescriptions: Hydrocodone/Acetaminophen [Hydrocodone-Acetamin 7.5-325] 1 each PO Q6HPRN PRN 3 Days #10 tablet MDD 4 PRN Reason: Pain
[2023-03-19 15:52] VITALS: PULSE 83
[2023-03-19 16:10] VITALS: BP 165/92; O2SAT 96
== END 2023-03-19 16:11 | disposition home or self-care (01) ==
LOC: ED 14:13
DX: S83.91XA Sprain of unspecified site of right knee, initial encounter (principal); M25.561 Pain in right knee; I10 Essential (primary) hypertension; E78.5 Hyperlipidemia, unspecified; Z79.85 Long-term (current) use of injectable non-insulin antidiabetic drugs; Z79.899 Other long term (current) drug therapy
CPT/HCPCS: 73562; 96372; 99283; J2270

== ENCOUNTER 2023-04-13 08:24 | Day surgery (SDC) | payer MEDICARE ==
--- NOTE | 2023-04-13 08:18 | HP ---
DATE OF SURGERY: 04/13/2023 HISTORY OF PRESENT ILLNESS: The patient is a 62-year-old with no prior colonoscopy with occasional rectal bleeding, aches and constipation. No change in bowels. Family history negative for colon cancer. PAST MEDICAL HISTORY: Cataracts, coronary artery disease, hypertension, asthma, gastroesophageal reflux disease, hypothyroidism, headaches/migraines, depression, hyperlipidemia, history of dementia. PAST SURGICAL HISTORY: Hysterectomy. Cholecystectomy. Tubal. MEDICATIONS: citalopram, metoprolol, memantine, montelukast, omeprazole, potassium chloride. ALLERGIES: BENADRYL. FAMILY HISTORY: Negative for colon cancer. SOCIAL HISTORY: No smoking or alcohol abuse. REVIEW OF SYSTEMS: Fourteen systems reviewed per admission assessment. No chest pain or palpitations. Other systems negative or noncontributory as above and per preadmission questionnaire. PHYSICAL EXAMINATION: Height 5'8". BMI 44. GENERAL: No acute distress. HEENT: Sclerae nonicteric. EOMI. Oral mucous membranes moist. NECK: No JVD. CHEST: Equal excursion, nonlabored breathing. CVS: Regular rate and rhythm. ABDOMEN: Soft. EXTREMITIES: No cyanosis or edema. NEURO: Alert, oriented, moving extremities symmetrically. RECTAL: Deferred timed to endoscopy exam. PSYCH: Appropriate mood and affect. SKIN: Dry. IMPRESSION: No prior colonoscopy. Need for screening colonoscopy. Risks explained in detail including but not limited to bleeding or infection, risk of bowel injury or perforation, risk of missed or nondiagnosis or incomplete exam, possibly requiring barium enema, other studies or procedures, general risk of anesthesia or sedation, risk of bowel prep but not limited to. Otherwise she will remain on medication for the hypertension and depression and her other multiple comorbidities. Will proceed with outpatient colonoscopy under MAC anesthesia.
[2023-04-13] MEDS ORDERED: Lactated Ringers 1,000 ML IV ONE (09:05)
[2023-04-13 09:13] VITALS: RESP 16
[2023-04-13] MEDS ORDERED: Lactated Ringers 1,000 ML IV SCH (11:30)
[2023-04-13] MEDS ORDERED: DIPRIVAN 200 MG/20 ML IV ONE ×2 (11:33→11:44)
[2023-04-13] MEDS ORDERED: Versed 2 MG/2 ML Injection ONE (11:33)
[2023-04-13] MEDS ORDERED: Xylocaine-Mpf 2% 5 Ml Vial ONE (11:33)
[2023-04-13 12:34] VITALS: TEMP 97.2
[2023-04-13 12:35] VITALS: BP 150/90; PULSE 68; O2SAT 98
--- NOTE | 2023-04-14 13:19 | OP ---
SURGERY DATE/TIME: 04/13/2023 1136 PREOPERATIVE DIAGNOSIS: Need for screening colonoscopy. POSTOPERATIVE DIAGNOSES: 1) Small polyp cecum, ascending colon, sigmoid colon. 2) Limited bowel prep. 3) ASA Class II.4) Withdrawal time at least nine minutes. PROCEDURES: 1) Colonoscopy to cecum. 2) Hot biopsy small early cecal polyp. 3) Hot biopsy polypectomy of one small raised lesion ascending colon, one small polyp ascending colon. 4) Hot biopsy polypectomy two small polyps versus hyperplastic lesion sigmoid colon x2. SURGEON: Dr. Brian Garcia. ANESTHESIA: MAC. ESTIMATED BLOOD LOSS: Minimal. INDICATIONS: As noted above, risks and benefits explained in detail but not limited to and consent obtained. DESCRIPTION OF PROCEDURE AND FINDINGS: The patient is taken to the endoscopy suite. MAC anesthesia introduced. After official time out and no disagreement with planned procedure, digital rectal exam did not reveal any rectal masses. Video colonoscope inserted and passed up through the tortuous sigmoid, descending, transverse and ascending colon around to the cecum. Appendiceal orifice and ileocecal valve well visualized and photo documented. Prep overall was limited. She had several areas of semisolid liquidy stool throughout the colon slightly limiting the exam for small lesions. The cecum is irrigated out real well. A small polyp in the cecum removed with hot biopsy polypectomy. Small raised lesion on a fold just on the ascending colon ileocecal valve area was removed with hot biopsy forceps. Another small polyp was removed with hot biopsy polyps in the cecum. The scope is carefully withdrawn over the next nine minutes. A couple of small polyps in the sigmoid colon were removed with hot biopsy polypectomy. Good hemostasis was noted. Otherwise no signs of any large polyps, masses or obstructing lesion but the prep did limit the exam. I will see the patient back in the office in a week. The staff told me that she has a family member that is going to pick her up.
== END 2023-04-13 12:55 | disposition home or self-care (01) ==
LOC: SDC 08:24
PROVIDERS: ATTEND Surgery
DX: Z12.11 Encounter for screening for malignant neoplasm of colon (principal); D12.2 Benign neoplasm of ascending colon; D12.0 Benign neoplasm of cecum; D12.5 Benign neoplasm of sigmoid colon
CPT/HCPCS: J2250; J2704

== ENCOUNTER 2024-03-16 12:35 | Day surgery (SDC) | payer MEDICARE ==
[2024-03-16] MEDS ORDERED: BUPIVACAINE 0.5% VIAL IJ ONE (12:36)
[2024-03-16] MEDS ORDERED: LIDOCAINE HCL 1% 50 MG/5 ML VL PF IJ ONE (12:36)
[2024-03-16] MEDS ORDERED: Versed 2 MG/2 ML Injection ONE (15:40)
[2024-03-16] MEDS ORDERED: Lactated Ringers 1,000 ML IV ONE (15:47)
--- NOTE | 2024-03-16 16:49 | XRAY ---
Indication: Left knee genicular nerve block. Intraoperative fluoroscopy provided for 37 seconds. 6 digital spot images left knee submitted for interpretation demonstrates anterior needle tips projecting medial/lateral supracondylar and medial tibial plateau. Correlate with intraoperative findings/report.
--- NOTE | 2024-03-16 20:10 | XRAY ---
37 seconds of fluoroscopy was used in surgery for a left genicular nerve block.
== END 2024-03-16 16:26 | disposition home or self-care (01) ==
LOC: SDC-PAIN 12:35
PROVIDERS: ATTEND Psychiatry & Neurology Pain Medicine
DX: M17.12 Unilateral primary osteoarthritis, left knee (principal); E11.9 Type 2 diabetes mellitus without complications
CPT/HCPCS: 64454; 73560; 77002; 82947; J2001; J2250

== ENCOUNTER 2024-04-27 13:34 | Day surgery (SDC) | payer MEDICARE ==
[2024-04-27] MEDS ORDERED: BUPIVACAINE 0.5% VIAL IJ ONE (13:35)
[2024-04-27] MEDS ORDERED: GELSYN-3 IU ONE (13:35)
[2024-04-27] MEDS ORDERED: Depo-Medrol 40 MG/ML IM ONE (13:35)
[2024-04-27] MEDS ORDERED: LIDOCAINE HCL 1% AMPUL 5 ML IJ ONE (13:35)
[2024-04-27] MEDS ORDERED: Versed 2 MG/2 ML Injection ONE (15:20)
[2024-04-27] MEDS ORDERED: Lactated Ringers 1,000 ML IV ONE (16:08)
--- NOTE | 2024-04-27 16:29 | XRAY ---
Indication: Left knee injection. Intraoperative fluoroscopy provided for 7 seconds. Single digital spot image submitted for interpretation demonstrates needle tip projecting over left femur intercondylar notch. Small amount of contrast injected for needle tip placement. Correlate with intraoperative findings/report.
--- NOTE | 2024-04-27 17:13 | XRAY ---
7 seconds of fluoroscopy was used in surgery for a left intra-articular knee and pes anserine bursa injection.
== END 2024-04-27 16:00 | disposition home or self-care (01) ==
LOC: SDC-PAIN 13:34
PROVIDERS: ATTEND Psychiatry & Neurology Pain Medicine
DX: M17.12 Unilateral primary osteoarthritis, left knee (principal); R73.03 Prediabetes
CPT/HCPCS: 20610; 73560; 77002; 82947; J2250; J7328; Q9966

== ENCOUNTER 2024-05-04 13:23 | Day surgery (SDC) | payer MEDICARE ==
[2024-05-04] MEDS ORDERED: LIDOCAINE HCL 1% AMPUL 5 ML IJ ONE (13:24)
[2024-05-04] MEDS ORDERED: GELSYN-3 IU ONE (13:24)
[2024-05-04] MEDS ORDERED: Lactated Ringers 1,000 ML IV ONE (14:20)
--- NOTE | 2024-05-04 16:56 | XRAY ---
7 seconds of fluoroscopy was used in surgery for a left intra-articular knee injection.
== END 2024-05-04 14:58 | disposition home or self-care (01) ==
LOC: SDC-PAIN 13:23
PROVIDERS: ATTEND Psychiatry & Neurology Pain Medicine
DX: M17.12 Unilateral primary osteoarthritis, left knee (principal); E11.9 Type 2 diabetes mellitus without complications
CPT/HCPCS: 20610; 73560; 77002; 82947; J7328; Q9966

== ENCOUNTER 2024-05-11 13:32 | Day surgery (SDC) | payer MEDICARE ==
[2024-05-11] MEDS ORDERED: GELSYN-3 IU ONE (13:33)
[2024-05-11] MEDS ORDERED: Versed 2 MG/2 ML Injection ONE (15:59)
--- NOTE | 2024-05-11 16:52 | XRAY ---
Indication: Left knee injection. Intraoperative fluoroscopy provided for 8 seconds. Single digital spot image submitted for interpretation demonstrates needle tip projecting over left femur intercondylar notch. Small amount of contrast injected for needle tip placement. Correlate with intraoperative findings/report.
--- NOTE | 2024-05-11 16:56 | XRAY ---
8 seconds of fluoroscopy was used in surgery for a left intra-articular knee injection.
== END 2024-05-11 16:26 | disposition home or self-care (01) ==
LOC: SDC-PAIN 13:32
PROVIDERS: ATTEND Psychiatry & Neurology Pain Medicine
DX: M17.12 Unilateral primary osteoarthritis, left knee (principal); R73.03 Prediabetes
CPT/HCPCS: 20610; 73560; 77002; 82947; J2250; J7328; Q9966

== ENCOUNTER 2024-05-20 17:13 | Emergency (ER) | payer MEDICARE ==
--- NOTE | 2024-05-20 17:20 | ERPHSYRPT ---
- History of Present Illness Time Seen by Provider: 05/20/24 17:19 Source: patient Exam Limitations: clinical condition Physician History: This is a morbidly obese 63-year-old white female patient of Dr. Mann who presents to the emergency department transported by the per diem clerk service. She is a patient of Dr. Mann. Patient has altered mental status that began yesterday. Patient does see Dr. Cuellar in the pain clinic and she denies being on any kind of narcotics. Patient did hit the back of her head after she fell a couple of days ago earlier in the week. She states that she is aware of the confusion and she feels very sleepy and lethargic. She has strong smelling urine as well. She also notices that she is having some jerking spells. She denies chest pain. She denies headache. She denies visual changes. She denies shortness of breath and she denies abdominal pain. Timing/Duration: yesterday Severity: mild (Mild to moderate) Character of Deficits: none Deficits: no difficulties Baseline/Normal Cognition: alert oriented x 3 Current Cognition: alert but confused (Mildly lethargic) Baseline Gait: walks w/o assistance Associated Symptoms: confusion, other (Mildly lethargic), No nausea, No vomiting, No slurred speech, No vision changes, No headache Allergies/Adverse Reactions: diphenhydramine [From Benadryl] Allergy (Verified 03/19/23 14:18) Hives Home Medications: Albuterol Sulfate [Albuterol Sulfate Hfa] 2 puff IH Q6HPRN PRN 12/27/19 [History] Fluticasone Propionate [Flonase NASAL] 2 spray NS DAILY PRN 12/27/19 [History] Citalopram Hydrobromide [Celexa] 40 mg PO DAILY 10/18/20 [History] Fluticasone/Umeclidin/Vilanter [Trelegy Ellipta 200-62.5-25] 1 puff IH DAILY 10/18/20 [History] Memantine HCl 10 mg PO BID 10/18/20 [History] Donepezil HCl 10 mg PO HS 10/09/21 [History] Ergocalciferol (Vitamin D2) [Vitamin D2] 1,250 mcg PO WEEKLY 10/09/21 [History] Metoprolol Succinate 25 mg PO DAILY 10/09/21 [History] Omeprazole 20 mg PO DAILY 10/09/21 [History] Ropinirole HCl 0.5 mg PO BID 10/09/21 [History] Solifenacin Succinate 10 mg PO DAILY 03/18/23 [History] Hx Tetanus, Diphtheria Vaccination/Date Given: No Hx Influenza Vaccination/Date Given: Yes Hx Pneumococcal Vaccination/Date Given: No Travel Risk - International Travel Have you traveled outside of the country in past 3 weeks: No - Emerging Infectious Disease Are you exhibiting symptoms associated with any current EIDs: No - Review of Systems Constitutional: Lethargy Eyes: No Symptoms Ears, Nose, & Throat: No Symptoms Respiratory: No Symptoms Cardiac: No Symptoms Abdominal/Gastrointestinal: No Symptoms Genitourinary Symptoms: No Symptoms Musculoskeletal: No Symptoms Skin: No Symptoms Neurological: Lethargy (Mildly lethargic) Psychological: No Symptoms Endocrine: No Symptoms Hematologic/Lymphatic: No Symptoms Immunological/Allergic: No Symptoms All Other Systems: Reviewed and Negative - Past Medical History Pertinent Past Medical History: Yes Neurological History: Peripheral Neuropathy ENT History: No Pertinent History Cardiac History: High Cholesterol, Hypertension Respiratory History: Asthma, Sleep Apnea Endocrine Medical History: No Pertinent History Musculoskeletal History: Fibromyalgia, Rheumatoid Arthritis GI Medical History: GERD History: No Pertinent History Psycho-Social History: Anxiety, Depression Female Reproductive Disorders: No Pertinent History Other Medical History: NUMBNESS IN B FEET AND HANDS. - Past Surgical History Past Surgical History: Yes Neuro Surgical History: No Pertinent History Cardiac: No Pertinent History Respiratory: No Pertinent History Gastrointestinal: Cholecystectomy Genitourinary: No Pertinent History Musculoskeletal: Other Female Surgical History: Hysterectomy, Tubal Ligation Other Surgical History: plantar fasciitis surgery - Social History Smoking Status: Never smoker How long have you smoked: 27 years Exposure to second hand smoke: No Drug Use: none Patient Lives Alone: Yes - Nursing Vital Signs Nursing Vital Signs: Initial Vital Signs Temperature 97.5 F 05/20/24 17:16 Pulse Rate 105 H 05/20/24 17:16 Respiratory Rate 18 05/20/24 17:16 Blood Pressure 115/51 05/20/24 17:16 O2 Sat by Pulse Oximetry 94 L 05/20/24 17:16 Pain Scale Pain Intensity 0 - [place] Coma Scale Best Eye Response (Sheron): (4) open spontaneously Best Verbal Response (Sheron): (4) confused conversation Best Motor Response (Sheron): (6) obeys commands Sheron Total: 14 - Physical Exam General Appearance: no apparent distress, lethargy, obese Eye Exam: bilateral eye: normal inspection, PERRL, EOMI Ears, Nose, Throat Exam: dry mucous membranes Neck Exam: normal inspection, non-tender, supple, full range of motion Respiratory: normal breath sounds, lungs clear, airway intact, No chest tenderness, No respiratory distress Cardiovascular: regular rate/rhythm, normal heart sounds, normal peripheral pulses Gastrointestinal: soft, normal bowel sounds, No tenderness Pelvic Exam: not done Rectal Exam: not done Back Exam: normal inspection, normal range of motion, No CVA tenderness, No vertebral tenderness Extremity Exam: normal inspection, normal range of motion, pelvis stable Mental Status: oriented x 3, lethargy (Mildly lethargic within when asked questions, she is oriented to location, self and time.) 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 Care 05/20/24 17:27 Active EKG-ER Only STAT Care 05/20/24 17:26 Active IV Insertion STAT Care 05/20/24 17:26 Active NPO (ED) STAT Care 05/20/24 17:27 Active POCT Glucose Check STAT Care 05/20/24 17:26 Active Pulse Oximetry (ED) STAT Care 05/20/24 17:26 Active HEAD WITHOUT CONTRAST [CT] Stat Exams 05/20/24 17:27 Completed ACETAMINOPHEN Stat Lab 05/20/24 18:20 Completed CBC W DIFF Stat Lab 05/20/24 18:20 Completed CMP Stat Lab 05/20/24 18:20 Completed CULTURE,URINE Stat Lab 05/20/24 19:27 Received ETHYL ALCOHOL Stat Lab 05/20/24 18:20 Completed MAGNESIUM Stat Lab 05/20/24 18:20 Completed SALICYLATE Stat Lab 05/20/24 18:20 Completed UA W/RFX UR CULTURE Stat Lab 05/20/24 19:27 Completed Urine Triage Profile Stat Lab 05/20/24 19:27 Completed Medication Summary Generic Name Dose Route Start Last Admin Trade Name Seb PRN Reason Stop Dose Admin Ceftriaxone Sodium 1 gm in 100 mls @ 200 mls/hr 05/20/24 20:41 Rocephin 1 Gm / 100 Ml Nacl IV 05/20/24 21:10 STAT ONE Discontinued Medications Generic Name Dose Route Start Last Admin Trade Name Seb PRN Reason Stop Dose Admin Sodium Chloride 1,000 mls @ 999 mls/hr 05/20/24 17:38 05/20/24 19:00 Sodium Chloride 0.9% 1000 Ml IV 05/20/24 18:38 Infused .Q1H1M STA Infusion Sodium Chloride Confirm 05/20/24 17:39 Sodium Chloride 0.9% 1000 Ml Administered 05/20/24 17:40 Dose 1,000 mls @ ud .ROUTE .STK-MED ONE Ceftriaxone Sodium Confirm 05/20/24 20:43 Rocephin 1 Gm / 100 Ml Nacl Administered 05/20/24 20:44 Dose 1 gm in 100 mls @ ud IV .STK-MED ONE Lab/Rad Data: Laboratory Result Diagrams 05/20/24 18:20 05/20/24 18:20 Laboratory Results 05/20/24 05/20/24 05/20/24 Range/Units 19:27 19:27 18:20 WBC 11.0 H Corrected WBC (auto) RBC 4.19 Hgb 11.6 Hct 36.7 MCV 87.6 MCH 27.7 MCHC 31.6 L RDW 15.9 H Plt Count 282 MPV 9.8 Gran % 86.1 H Immature Gran % (Auto) 0.3 Nucleat RBC Rel Count 0.0 Eos # (Auto) 0.05 Immature Gran # (Auto) 0.03 Absolute Lymphs (auto) 0.95 L Absolute Monos (auto) 0.46 Absolute Nucleated RBC 0.00 Lymphocytes % 8.7 L Monocytes % 4.2 L Eosinophils % 0.5 L Basophils % 0.2 Absolute Granulocytes 9.44 H Basophils # 0.02 Sodium Potassium Chloride Carbon Dioxide Anion Gap BUN Creatinine Estimated GFR Glucose Calcium Magnesium Total Bilirubin AST ALT Alkaline Phosphatase Serum Total Protein Albumin Urine Color Yellow (Yellow) Urine Appearance Cloudy A (Clear) Urine pH 5.0 (4.6-8.0) Ur Specific Mears 1.020 (1.005-1.030) Urine Protein Negative (Negative) Urine Glucose (UA) Negative (Negative) mg/dL Urine Ketones Trace A (Negative) Urine Blood Negative (Negative) Urine Nitrite Positive A (Negative) Urine Bilirubin Negative (Negative) Urine Urobilinogen 1.0 A (0.2) mg/dL Ur Leukocyte Esterase Small A (Negative) U Hyaline Cast (Auto) 20-50 (0-2) /LPF Urine Microscopic RBC 0-2 (0-5) /HPF Urine Microscopic WBC 11-20 A (0-5) /HPF Ur Epithelial Cells Few (None Seen) /HPF Urine Bacteria Moderate A (None Seen) /HPF Urine Culture Reflexed YES (NO) Salicylates Urine Opiates Level NEGATIVE (NEGATIVE) Ur Methadone NEGATIVE (NEGATIVE) Acetaminophen Urine Barbiturates NEGATIVE (NEGATIVE) Ur Phencyclidine (PCP) NEGATIVE (NEGATIVE) Urine Amphetamine NEGATIVE (NEGATIVE) U Benzodiazepine Level NEGATIVE (NEGATIVE) Urine Cocaine NEGATIVE (NEGATIVE) Urine Marijuana (THC) NEGATIVE (NEGATIVE) Ethyl Alcohol Slides for Path Review 05/20/24 05/20/24 05/20/24 Range/Units 18:20 17:39 17:39 WBC Cancelled Corrected WBC (auto) Cancelled RBC Cancelled Hgb Cancelled Hct Cancelled MCV Cancelled MCH Cancelled MCHC Cancelled RDW Cancelled Plt Count Cancelled MPV Cancelled Gran % Cancelled Immature Gran % (Auto) Cancelled Nucleat RBC Rel Count Cancelled Eos # (Auto) Cancelled Immature Gran # (Auto) Cancelled Absolute Lymphs (auto) Cancelled Absolute Monos (auto) Cancelled Absolute Nucleated RBC Cancelled Lymphocytes % Cancelled Monocytes % Cancelled Eosinophils % Cancelled Basophils % Cancelled Absolute Granulocytes Cancelled Basophils # Cancelled Sodium 135 Cancelled Potassium 5.2 H Cancelled Chloride 101 Cancelled Carbon Dioxide 24 Cancelled Anion Gap 14.6 Cancelled BUN 28 H Cancelled Creatinine 1.84 H Cancelled Estimated GFR 30.3 Cancelled Glucose 107 H Cancelled Calcium 8.8 Cancelled Magnesium 2.0 Cancelled Total Bilirubin 0.60 Cancelled AST 23 Cancelled ALT 26 Cancelled Alkaline Phosphatase 143 H Cancelled Serum Total Protein 7.5 Cancelled Albumin 3.9 Cancelled Urine Color (Yellow) Urine Appearance (Clear) Urine pH (4.6-8.0) Ur Specific [place]ears (1.005-1.030) Urine Protein (Negative) Urine Glucose (UA) (Negative) mg/dL Urine Ketones (Negative) Urine Blood (Negative) Urine Nitrite (Negative) Urine Bilirubin (Negative) Urine Urobilinogen (0.2) mg/dL Ur Leukocyte Esterase (Negative) U Hyaline Cast (Auto) (0-2) /LPF Urine Microscopic RBC (0-5) /HPF Urine Microscopic WBC (0-5) /HPF Ur Epithelial Cells (None Seen) /HPF Urine Bacteria (None Seen) /HPF Urine Culture Reflexed (NO) Salicylates < 1.0 L Cancelled Urine Opiates Level (NEGATIVE) Ur Methadone (NEGATIVE) Acetaminophen < 10 L Cancelled Urine Barbiturates (NEGATIVE) Ur Phencyclidine (PCP) (NEGATIVE) Urine Amphetamine (NEGATIVE) U Benzodiazepine Level (NEGATIVE) Urine Cocaine (NEGATIVE) Urine Marijuana (THC) (NEGATIVE) Ethyl Alcohol < 10 Cancelled Slides for Path Review Cancelled - Progress Progress: improved, re-examined Progress Note: 05/20/24 19:08 My medical decision making and the assignment of moderate complexity to this patient's medical issue today is based on review of the patient's past medical history, review the patient's medication list, reviewed patient drug allergy list, history present illness and physical findings on examination. The workup in this patient includes placement of intravenous line, infusion normal saline solution, CT scan of the head without contrast, CBC, CMP, magnesium level, urinalysis, urine drug screen, ethyl alcohol level, salicylate level, acetaminophen level Differential diagnosis includes but is not limited to altered mental status secondary to urinary tract infection, dehydration, illicit drug use, acute intracranial abnormality 05/20/24 20:45 I interpreted the patient's laboratory data results. Based on the laboratory data results patient has a significant urinary tract infection which is likely the cause of her confusion. She states this has happened to her in the past. CT scan of the head without contrast was interpreted by the radiologist and I reviewed the impression. The impression states normal CT scan of the head without contrast when compared to similar study dated 03/20/2022. Reexamination of this patient shows her mental status to be at baseline. She is awake she is alert and she is oriented. She again stated that she has had urinary tract infections because of this same clinical picture. She is feeling much better and she wants to go home after her IV antibiotics. I think this is reasonable as she is medically stable to do so. 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 Take your antibiotics and other medication as prescribed. Call your primary care provider on 05/23/2024, to make arrangements for a follow-up appointment to be seen in the next 5 to 7 days. Prescriptions: Cefdinir 300 mg PO BID #14 cap
[2024-05-20 17:27] VITALS: TEMP 97.5
[2024-05-20] MEDS ORDERED: Sodium Chloride 0.9% 1000 ML 1,000 ML ONE (17:39)
[2024-05-20] MEDS: Sodium Chloride 0.9% 1000 ML 1,000 ML IV STA (17:41)
[2024-05-20 18:24] LABS: Absolute Neutrophil Ct (ANC) 9.44 x10^3/uL (1.56-6.13); BASOPHIL % 0.2 % (0.1-1.2); Basophil (Absolute #) 0.02 x10^3/uL (0.01-0.08); Eosinophil % 0.5 % (0.7-5.8); Eosinophil (Absolute #) 0.05 x10^3/uL (0.04-0.36); Hematocrit 36.7 % (34.1-44.9); Hemoglobin 11.6 g/dL (11.2-15.7); IMMATURE GRAN # 0.03 x10^3u/L (0.001-0.031); IMMATURE GRAN % 0.3 % (0.001-0.429); Lymphocyte (Absolute #) 0.95 x10^3/uL (1.18-3.74); Lymphocytes % 8.7 % (19.3-51.7); Mean Cell Volume 87.6 fL (79.4-94.8); Mean Corpuscular Hemoglobin 27.7 pg (25.6-32.2); Mean Corpuscular Hgb Concent. 31.6 g/dL (32.2-35.5); Mean Platelet Volume 9.8 fL (9.4-12.3); Monocyte (Absolute #) 0.46 x10^3/uL (0.24-0.86); Monocytes % 4.2 % (4.7-12.5); Neutrophil % 86.1 % (34.0-71.1); Platelet Count 282 x10^3/uL (182-369); Red Blood Count 4.19 x10^6/uL (3.93-5.22); Red Cell Distribution Width 15.9 % (11.7-14.4)
[2024-05-20 18:41] LABS: ACETAMINOPHEN < 10 ug/ml (10-30); ALBUMIN 3.9 g/dL (3.5-5.0); ALKALINE PHOSPHATASE 143 U/L (38-126); ANION GAP 14.6 MEQ/L (5-15); BLOOD UREA NITROGEN 28 mg/dL (7-17); CHLORIDE 101 mmol/L (98-107); Calcium 8.8 mg/dL (8.4-10.2); Carbon Dioxide 24 mmol/L (22-30); Creatinine 1 1.84 mg/dL (0.52-1.04); EST GLOMERULAR FILTRATION RATE 30.3 ML/MIN; ETHYL ALCOHOL < 10 mg/dL (0-10); Glucose 107 mg/dL (74-106); Potassium 5.2 mmol/L (3.5-5.1); SALICYLATE < 1.0 mg/dL (2-20); SGOT/AST 23 U/L (14-36); SGPT/ALT 26 U/L (0-35); SODIUM 135 mmol/L (135-145); Total Protein 7.5 g/dL (6.3-8.2)
--- NOTE | 2024-05-20 19:03 | XRAY ---
Indication: Altered mental status. Confusion. Head injury days ago. Multiple contiguous axial images obtained through the head without contrast. Comparison: March 20, 2022 Normal appearing brain parenchyma, ventricles, and bony calvarium. Visualized paranasal sinuses and mastoid air cells are clear. Impression: Continued normal CT head without contrast exam.
[2024-05-20 19:52] LABS: Amphetamine,Urine NEGATIVE (NEGATIVE); Barbiturate,Urine NEGATIVE (NEGATIVE); Benzodiazepine,Urine NEGATIVE (NEGATIVE); Cocaine,Urine NEGATIVE (NEGATIVE); Methadone,Urine NEGATIVE (NEGATIVE); Opiate,Urine NEGATIVE (NEGATIVE); PCP,Urine NEGATIVE (NEGATIVE); THC,Urine NEGATIVE (NEGATIVE)
[2024-05-20 19:54] LABS: Appearance Cloudy (Clear); Bacteria Moderate /HPF (None Seen); Bilirubin Negative (Negative); Blood Negative (Negative); Epithelial Cells Few /HPF (None Seen); Glucose, Urine Negative (Negative); Ketones Trace (Negative); Leukocyte Esterase Small (Negative); Nitrite Positive (Negative); Protein,Urine Dip Negative (Negative); RBC 0-2 /HPF (0-5)
[2024-05-20 19:56] LABS: Hyaline Casts 20-50 /LPF (0-2)
[2024-05-20 20:33] VITALS: RESP 18
[2024-05-20] MEDS ORDERED: ROCEPHIN 1 GM / 100 ML NaCl 1 GM/100 ML IVPB IV ONE (20:43)
[2024-05-20] MEDS ORDERED: Sodium Chloride 0.9% 500 ML 500 ML IV ONE (20:48)
[2024-05-20] MEDS: Sodium Chloride 0.9% 500 ML 500 ML IV ONE (20:51)
[2024-05-20] MEDS: ROCEPHIN 1 GM / 100 ML NaCl 1 GM/100 ML IVPB IV ONE (20:52)
[2024-05-20 21:28] VITALS: BP 76/53; PULSE 90; O2SAT 92
== END 2024-05-20 21:52 | disposition home or self-care (01) ==
LOC: ED 17:13
DX: N39.0 Urinary tract infection, site not specified (principal); R41.0 Disorientation, unspecified; R40.0 Somnolence; E78.5 Hyperlipidemia, unspecified; I10 Essential (primary) hypertension; Z79.899 Other long term (current) drug therapy
CPT/HCPCS: 36000; 36415; 70450; 80053; 80143; 80179; 80307; 81001; 82077; 83735; 85025; 87077; 87086; 87186; 93005; 93041; 94760; 96360; 96361; 96365; 99284; J0696